=== PATIENT | female | born 1970 ===

== ENCOUNTER 2021-12-26 15:56 | Inpatient (IN) | payer OTHER, SELFPAY ==
[2021-12-26 21:40] VITALS: BP 116/76; PULSE 97; TEMP 36.6; O2SAT 99
[2021-12-27 00:10] VITALS: BMI 23.1
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
[2021-12-27 06:00] VITALS: BP 97/63; PULSE 118; RESP 20; TEMP 36.4; O2SAT 97
--- NOTE | 2021-12-27 10:05 | P.CONHOSP_ITS ---
History of Present Illness Data of Consult Service Date: 12/27/21 Primary Care Provider: Unknown Physician HPI Reason for consult: Routine Medical H&P This is a 51 yo F who is admitted to the inpatient psych unit. Medical consult is requested for routine medical H&P. Patient is seen and examined in her room. catering truck driver is bedside. Please note, the history & physical is very limited due to the patient's current psychiatric symptoms. PMH/PSH/FH/Social History Does not answer -- too preoccupied with being admitted to inpatient psych. Keeps asking about her . Review of Systems Review of Systems: unreliable due to patients current psychiatric decompensation PMFSH Social History Household Members: Family Housing: House Do you presently have visiting nurse or other home services: No Patient Tobacco Use Status: Never used Tobacco e-Cigarette/Vaping Use: Never Used Second Hand Smoke Exposure: No Use of substances other than those prescribed or required for medical reasons: No Currently Displaying Signs/Symptoms of Drug Intoxication Withdrawal: No Any prior treatment program specific to substance use: No Have you been hit, kicked, punched, or otherwise hurt by someone within the past year? If so, by whom?: No Do you feel safe in your current relationship?: Yes Is there a partner from a previous relationship who is making you feel unsafe now?: No Are you made to feel afraid or neglected: No Spiritual Healthcare Practices: Pt unsure Sabianist Healthcare Practices: Pt unsure Cultural Healthcare Practices: Pt unsure Advance Directives: No Advance Directives Information Provided: No Advance Directives on File: No Do you have thoughts of harming others: None Do you have a plan to hurt others: No Plan Recently lost weight without trying: No How much weight loss: 14-23 pounds Eating poorly because of decreased appetite: Yes Nutrition screen score: 3 Nutrition Risks: No Nutritional Risk and Anorexia Patient : No : No Poor oral hygiene: No Meds Allergies Allergy/AdvReac Type Severity Reaction Status Date / Time No Known Allergies Allergy Verified 12/26/21 15:32 Active Medications: Current Medications Acetaminophen (Acetaminophen 325 Mg Tablet) 650 mg PO Q6H PRN PRN Reason: Headache/Pain Mild Scale (1-3) Al Hydroxide/Mg Hydroxide (Magnesium Hydrox/Alum Hydrox 30 Ml Oral.Susp) 30 ml PO Q6H PRN PRN Reason: Heartburn/Nausea Hydroxyzine HCl (Hydroxyzine Hcl 25 Mg Tablet) 25 mg PO BEDTIME PRN PRN Reason: Anxiety Magnesium Hydroxide (Milk Of Magnesia 30 Ml Oral.Susp) 30 ml PO DAILY PRN PRN Reason: Constipation Trazodone HCl (Trazodone Hcl 50 Mg Tablet) 50 mg PO BEDTIME PRN PRN Reason: Insomnia Physical Exam Vital Signs and Narrative: Vital Signs: Last Vital Signs Temp 97.6 F 12/27/21 06:00 Pulse 118 H 12/27/21 06:00 Resp 20 12/27/21 06:00 BP 97/63 12/27/21 06:00 Pulse Ox 97 12/27/21 06:00 BMI result Body Mass Index 23.1 Const: Other: Exam is limited Pt is seen ambulating in the hallway, does not have any obvious gait issues EOMI are in tact Does let me complete heart and lung exam -- S1S2+; RRR -- slight tachy around 100-110 range; lungs clear Neuro - limited exam but CN 2-12 appear grossly in tact; moving all 4 limbs, speech appears normal Assessment and Plan (1) Routine medical exam: Status: Acute Plan This is a 51 yo F who is admitted to the inpatient psych unit. Medical consult is requested for routine medical H&P. PMH unclear, as patient does not answer questions. Check basic lab work if not already done so. Please reconsult PRN. Will sign off at this time.
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
[2021-12-27 18:56] VITALS: BP 95/64; PULSE 94; RESP 18; TEMP 36.2; O2SAT 98
[2021-12-27] MEDS: risperiDONE 1 MG TABLET PO (21:33)
[2021-12-27] MEDS: Mirtazapine 15 MG TABLET PO (21:33)
[2021-12-28 06:00] VITALS: BP 101/67; PULSE 98; RESP 18; TEMP 36.4; O2SAT 98
[2021-12-28 07:50] VITALS: BP 82/56; RESP 14
[2021-12-28 08:14] LABS: Glucose, Whole Blood 64 mg/dL (60-115)
[2021-12-28 08:34] LABS: Estimated Average Glucose 97 mg/dL
[2021-12-28 08:39] LABS: Alanine Aminotransferase 14 U/L (0-31); Albumin Level 4.2 g/dL (3.5-5.0); Alkaline Phosphatase 73 U/L (39-117); Anion Gap 15 (12-20); Aspartate Amino Transferase 16 U/L (5-31); Bilirubin Total 0.9 mg/dL (0.0-1.0); Blood Urea Nitrogen 24 mg/dL (9-16); Calcium 10.4 mg/dL (8.4-10.2); Carbon Dioxide 26 mmol/L (22-29); Chloride 105 mmol/L (96-108); Cholesterol 224 mg/dL; Creatinine Clr Calc Pharmacy 53.8; Estimated Glomerular Filt Rate 58; Glucose Random 76 mg/dL (60-115); HDL Cholesterol 64 mg/dL; LDL Cholesterol Calculated 141 mg/dl; Potassium 4.6 mmol/L (3.3-5.1); Sodium 141 mmol/L (135-145); Total Protein 7.2 g/dL (6.5-8.0); Triglycerides 98 mg/dL
[2021-12-28 09:05] LABS: Vitamin D 25-OH Total 14.8 ng/mL (>30)
--- NOTE | 2021-12-28 10:00 | ECG_ITS ---
Test Reason : CKQT Blood Pressure : / mmHG Vent. Rate : 084 BPM Atrial Rate : 084 BPM P-R Int : 126 ms QRS Dur : 078 ms QT Int : 382 ms P-R-T Axes : 078 068 058 degrees QTc Int : 451 ms Sinus rhythm with Premature supraventricular complexes Otherwise normal ECG No previous ECGs available Referred By: Samara Barrera Electronically Signed By:VICK LUTHER MD
[2021-12-28 11:20] VITALS: BP 87/52; PULSE 97; RESP 14; O2SAT 100
[2021-12-28 12:32] LABS: Folate 9.7 ng/mL (> or = 4.0); Vitamin B12 461 pg/mL (200-900)
--- NOTE | 2021-12-28 14:50 | MHC.CLN ---
RE: CONSULT HT 63 WT 59.1KG BMI 23.1 IBW 115#+/-10% PT IS 113% IBW INDICATES OVER WEIGHT FOR HT ESTIMATED NUTRITION NEEDS: 1773KCALS, 59G PROTEIN, 1800ML H20 LABS 12/28/21 NOTED BUN 24, ALBUMIN 4.2 WNL MEDS: REMERON, RISPERDAL DIET RX: REGULAR-APPROPRIATE PT REPORTS 30# WT LOSS SINCE MARCH 2021 PT TRIGGERS FOR 19% SIGNIFICANT WT LOSS X 9 MONTHS PT REPORTED POOR SLEEP AND POOR PO INTAKE PT HAS HX ANOREXIA DURING TEEN YEARS INCREASES NUTRITION RISK MONITOR PO INTAKE CLOSELY IF PO REMAINS POOR; RECOMMEND ADDING ENSURE BID TO PROVIDE 700KCALS, 40G PROTEIN WEEKLY WEIGHTS IF NEEDED
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
[2021-12-28 17:37] VITALS: BP 100/64; PULSE 82; RESP 18; TEMP 37.2; O2SAT 99
[2021-12-28] MEDS: Mirtazapine 15 MG TABLET PO (20:09)
[2021-12-28] MEDS: risperiDONE 1 MG TABLET PO (20:09)
[2021-12-29 06:00] VITALS: BP 120/61; PULSE 100; RESP 16; TEMP 35.8; O2SAT 97
[2021-12-29] MEDS: Multivitamin TABLET 1 TAB PO (08:55)
[2021-12-29] MEDS: Mirtazapine 15 MG TABLET PO (22:22)
[2021-12-29] MEDS: risperiDONE 1 MG TABLET PO (22:22)
--- NOTE | 2021-12-29 23:33 | P.PNPSI_ITS ---
Subjective Subjective Date of Service: 12/29/21 Reason For Visit: Psychotic d/o Interim History: pt disorganized, difficult to engage as she is perseverative on various topics. She keeps saying over and over that she thinks she missed something, missed some group, that there was something she was supposed to be attending...pt could not be redirected off this topic and interview could go no further. Mental Status Exam Mental Status Exam Narrative: Patient Appearance:?Appropriate Patient Orientation:?Person, Place, Time and Situation Level of Consciousness:?Alert Patient Behavior:?disorganized, Talkative, minimal Eye Contact Mood Description:?anxious Affect Description:?constricted Patient Cognition Impaired:?Yes Ability to Follow Directions:?Fair Speech Pattern:?Spontaneous Speech Memory Description:?Remote Impaired and Episodic Impaired Hallucinations:?None (denies) Delusions:?Paranoid Ideation Perceptual Disturbances:?Depersonalization and Derealization Thought Process:?Rumination Thought Content:?positive for [place], ruminating on worried thought; no SI/HI Depressive Symptoms:?Increased Anxiety Judgement/insight:?Poor Diagnostics Vital Signs (24Hr): Vital Signs - 24 hr 12/29/21 06:00 Temperature 96.4 F L Pulse Rate 100 Respiratory Rate 16 Blood Pressure 120/61 Pulse Oximetry 97 BMI result Body Mass Index 23.1 Labs Results: 12/28/21 08:04 Labs: Laboratory Results - last 48 hr 12/28/21 12/28/21 12/28/21 08:04 08:04 08:04 Sodium 141 Potassium 4.6 Chloride 105 Carbon Dioxide 26 Anion Gap 15 BUN 24 H Creatinine 1.00 Estim Creat Clear Calc 53.8 Estimated GFR 58 POC Glucose Random Glucose 76 Estimat Average Glucose 97 Hemoglobin A1c % 5.0 Calcium 10.4 H Total Bilirubin 0.9 AST 16 ALT 14 Alkaline Phosphatase 73 Total Protein 7.2 Albumin 4.2 Triglycerides 98 Cholesterol 224 LDL Cholesterol, Calc 141 HDL Cholesterol 64 Vitamin B12 461 25-OH Vitamin D Total 14.8 Folate 9.7 TSH 0.70 12/28/21 08:10 Sodium Potassium Chloride Carbon Dioxide Anion Gap BUN Creatinine Estim Creat Clear Calc Estimated GFR POC Glucose 64 Random Glucose Estimat Average Glucose Hemoglobin A1c % Calcium Total Bilirubin AST ALT Alkaline Phosphatase Total Protein Albumin Triglycerides Cholesterol LDL Cholesterol, Calc HDL Cholesterol Vitamin B12 25-OH Vitamin D Total Folate TSH Medications Medications Current Medications Acetaminophen (Acetaminophen 325 Mg Tablet) 650 mg PO Q6H PRN PRN Reason: Headache/Pain Mild Scale (1-3) Al Hydroxide/Mg Hydroxide (Magnesium Hydrox/Alum Hydrox 30 Ml Oral.Susp) 30 ml PO Q6H PRN PRN Reason: Heartburn/Nausea Hydroxyzine HCl (Hydroxyzine Hcl 25 Mg Tablet) 25 mg PO BEDTIME PRN PRN Reason: Anxiety Magnesium Hydroxide (Milk Of Magnesia 30 Ml Oral.Susp) 30 ml PO DAILY PRN PRN Reason: Constipation Mirtazapine (Mirtazapine 15 Mg Tablet) 15 mg PO BEDTIME [facility] [place] Last Admin: 12/29/21 22:22 Dose: 15 mg Documented by: Multivitamins/Vitamin C (Multivitamin Tablet) 1 tab PO DAILY [facility] Last Admin: 12/29/21 08:55 Dose: 1 tab Documented by: Risperidone (Risperidone 1 Mg Tablet) 1 mg PO BEDTIME [facility] Last Admin: 12/29/21 22:22 Dose: 1 mg Documented by: Trazodone HCl (Trazodone Hcl 50 Mg Tablet) 50 mg PO BEDTIME PRN PRN Reason: Insomnia Allergies Allergies Allergy/AdvReac Type Severity Reaction Status Date / Time No Known Allergies Allergy Verified 12/26/21 15:32 Assessment & Plan Assessment & Plan (1) Major depression with psychotic features: Status: Acute Code(s): F32.3 - Major depressive disorder, single episode, severe with psychotic features Plan 51 yo female presents with symptoms of paranoia, psychosis without history of illness. ADL's have declined and pt in the ER experiencing delusions of persecution, derealization and depersonalization. Today, she asks how to leave, have very poor spatial boundaries-staring into tw eyes and violating personal space often during our meeting. Medical clearance from sending facility is limited. Will begin with this eval. Psychosocially, pt has lost both parents in 2017 and 2018 and per family has not grieved adequately. Youngest son has moved from the family home in summer 2020 and reportedly has a history of depression with SI. 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 Pt not eating or sleeping well, anxious and wandering the unit asking to leave. Plan: Remeron 15 mg HS- target sx sleep, appetite Risperdal 1 mg HS-target sx to clarify thought process, decrease paranoia CMP, TSH, B12, Folate, Vit D, A1C, Lipids EKG MRI Brain-new onset psychosis in the absence of history. EEG MVI i tablet daily 12/28/21: Continue medical work up and current regime Pt appears improved today. Ongoing collateral contact-it appears history of symptoms is longer than initially known. ? R/O PTSD 12/29 disorganized speech and behavior, perseverating on non-sensical things; will leave current med regimen as is for now I spent minutes with the patient and/or on the patient floor today, greater than?50% of which was spent counseling/coordinating care. Patient educated on: medication risk/benefits Informed Consent: does not understand Reason for contiued inpatient stay Substantial Risk for: inability to function
--- NOTE | 2021-12-30 00:13 | PC.NURSE ---
Patient's expressed a lot of concern that his might be losing too much weight and asked that her weight be monitored closely.
[2021-12-30] MEDS: Multivitamin TABLET 1 TAB PO (08:38)
[2021-12-30 09:00] VITALS: BP 122/74; PULSE 91; RESP 18; TEMP 36.6; O2SAT 98
--- NOTE | 2021-12-30 17:26 | HO.PSYCHPN ---
Subjective Subjective Date of Service: 12/30/21 Reason For Visit: Psychotic d/o Interim History: pt remains disorganized, crying in hallway, seems confused. Tells loan underwriter that there is a sweater on chair in day room and she's worried she'll be accused if it goes missing. Pt perseverates on this worry and cannot be redirected to another topic. Sole Conditioner discusses medications and pt agrees to increase risperdal. Mental Status Exam Mental Status Exam Narrative: Patient Appearance:?disheveled, same shirt, malodorous Patient Orientation:?Person, Place, Level of Consciousness:?Alert Patient Behavior:?disorganized, Talkative, minimal Eye Contact Mood Description:?anxious Affect Description:?constricted Patient Cognition Impaired:?Yes Ability to Follow Directions:?Fair Speech Pattern:?Spontaneous Speech Memory Description:?Remote Impaired and Episodic Impaired Hallucinations:?None (denies) Delusions:?Paranoid Ideation Perceptual Disturbances:?Depersonalization and Derealization Thought Process:?Rumination Thought Content:?positive for [place], ruminating on worried thought; no SI/HI Depressive Symptoms:?Increased Anxiety Judgement/insight:?Poor Diagnostics Vital Signs (24Hr): Vital Signs - 24 hr 12/30/21 09:00 Temperature 98 F Pulse Rate 91 Respiratory Rate 18 Blood Pressure 122/74 Pulse Oximetry 98 BMI result Body Mass Index 23.1 Labs Results: 12/28/21 08:04 Medications Medications Current Medications Acetaminophen (Acetaminophen 325 Mg Tablet) 650 mg PO Q6H PRN PRN Reason: Headache/Pain Mild Scale (1-3) Al Hydroxide/Mg Hydroxide (Magnesium Hydrox/Alum Hydrox 30 Ml Oral.Susp) 30 ml PO Q6H PRN PRN Reason: Heartburn/Nausea Hydroxyzine HCl (Hydroxyzine Hcl 25 Mg Tablet) 25 mg PO BEDTIME PRN PRN Reason: Anxiety Magnesium Hydroxide (Milk Of Magnesia 30 Ml Oral.Susp) 30 ml PO DAILY PRN PRN Reason: Constipation Mirtazapine (Mirtazapine 15 Mg Tablet) 15 mg PO BEDTIME [facility] Last Admin: 12/29/21 22:22 Dose: 15 mg Documented by: Multivitamins/Vitamin C (Multivitamin Tablet) 1 tab PO DAILY [facility] Last Admin: 12/30/21 08:38 Dose: 1 tab Documented by: Risperidone (Risperidone 2 Mg Tablet) 2 mg PO BEDTIME [facility] Trazodone HCl (Trazodone Hcl 50 Mg Tablet) 50 mg PO BEDTIME PRN PRN Reason: Insomnia Allergies Allergies Allergy/AdvReac Type Severity Reaction Status Date / Time No Known Allergies Allergy Verified 12/26/21 15:32 Assessment & Plan Assessment & Plan (1) Major depression with psychotic features: Status: Acute Code(s): F32.3 - Major depressive disorder, single episode, severe with psychotic features Plan 51 yo female presents with symptoms of paranoia, psychosis without history of illness. ADL's have declined and pt in the ER experiencing delusions of persecution, derealization and depersonalization. Today, she asks how to leave, have very poor spatial boundaries-staring into tw eyes and violating personal space often during our meeting. Medical clearance from sending facility is limited. Will begin with this eval. Psychosocially, pt has lost both parents in 2016 and 2017 and per family has not grieved adequately. Youngest son has moved from the family home in summer 2020 and reportedly has a history of depression with SI. 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 Pt not eating or sleeping well, anxious and wandering the unit asking to leave. Plan: Remeron 15 mg HS- target sx sleep, appetite Risperdal 1 mg HS-target sx to clarify thought process, decrease paranoia CMP, TSH, B12, Folate, Vit D, A1C, Lipids EKG MRI Brain-new onset psychosis in the absence of history. EEG MVI i tablet daily 12/28/21: Continue medical work up and current regime Pt appears improved today. Ongoing collateral contact-it appears history of symptoms is longer than initially known. ? R/O PTSD 12/30 remains disorganized, perseverating on non-sensical worries; -increase risperdal to 2mg qhs I spent minutes with the patient and/or on the patient floor today, greater than?50% of which was spent counseling/coordinating care. Patient educated on: medication risk/benefits Informed Consent: understands Reason for contiued inpatient stay Substantial Risk for: inability to function
[2021-12-30 18:00] VITALS: BP 112/76; PULSE 100; TEMP 36.4
[2021-12-30] MEDS: risperiDONE 2 MG TABLET PO (20:50)
[2021-12-30] MEDS: Mirtazapine 15 MG TABLET PO (20:50)
[2021-12-31 06:00] VITALS: BP 118/72; PULSE 93; RESP 18; TEMP 36.6; O2SAT 99
[2021-12-31] MEDS: Multivitamin TABLET 1 TAB PO (08:46)
--- NOTE | 2021-12-31 09:00 | EEG_ITS ---
This is a 16-channel EEG with an EKG lead. The patient is reported awake during the tracing. Background EEG rhythm is about 16 hertz, 5 to 30 microvolt posteriorly, lower amplitude fast anteriorly. Photic stimulation does not produce any significant abnormality. Hyperventilation is not performed. Cardiac lead does not reveal any significant abnormality. No definite sharp wave spikes or paroxysmal tendency noted. The patient transitioned into drowsiness with no significant abnormality. IMPRESSION: Unremarkable EEG. MD RUEL Ordoñez/KHURRAM / [id number]
--- NOTE | 2021-12-31 16:23 | P.PNPSI_ITS ---
Subjective Subjective Date of Service: 12/31/21 Reason For Visit: Psychotic d/o Subjective Notes: Conditional Voluntary Healthcare Proxy: No Guardianship: No Medical Problems Affecting Mental Status: No Interim History: Joy signed a Section X today. She reports she does not feel prepared to go home, and, in fact, fears that someone will come to the unit and kidnap her and she will be taken away from her family. Attempted reassurance, discussed safety. Pt reports she feels safe on the unit, likes her room-mate a lot and enjoys her peers and the staff. Today, she was found using the bathroom while her room-mate was in the bathroom-she did not find this problematic, citing that she has raised two children and when young, they were always in the bathroom with her-as a result she thought nothing of this instance this a.m. Her room-mate contributes to this discussion stating she fully understands as she is one of five children. Both smiled and laughed briefly. Discussed medication. Joy reports she is finding it helpful and wants to increase. Discussed adding colace to prevent constipation and Eucerin cream for dry skin. Presents as pressured at times, anxious-talks about fearing she would be taken in her childhood. Agrees to treatment plan. Medication Compliance: Yes Side effects from medications: No Attending Groups: Intermittent Review of Systems Acute medical concerns: No Medical Review of Systems: unchanged Review of Systems Reports behavioral changes and Reports confusion Psychiatric: Reports anxiety, Reports behavioral changes, Reports confusion, Reports depression, Reports difficulty concentrating, Reports mood swings and Reports paranoia Mental Status Exam Mental Status Exam Patient Appearance: Appropriate Patient Orientation: Person, Place, Time and Situation Level of Consciousness: Alert Patient Behavior: Guarded, Talkative, Suspicious and Good Eye Contact Mood Description: Depressed, Fearful, Anxious and Apprehensive Affect Description: Depressed, Fearful and Anxious Patient Cognition Impaired: Yes Ability to Follow Directions: Good Speech Pattern: Perseverating, Spontaneous Speech and Soft-Spoken Memory Description: Episodic Impaired Hallucinations: None Delusions: Paranoid Ideation and Present Perceptual Disturbances: Depersonalization and Derealization Thought Process: Distracted, Rumination and Confusion Thought Content: positive for Perseveration, positive for Thought Blocking and positive for Tangential Depressive Symptoms: Increased Anxiety, Loss of Int. in Activity, Feelings of Worthlessness, Isolating-Friends/Family, Feelings of Guilt, Unhappiness, Increased Fatigue, Low Self Esteem, Loss of Energy and Difficulty Concentrating Abnormal Motor Activity Signs and Symptoms: Restlessness Judgement: Poor Diagnostics Vital Signs (24Hr): Vital Signs - 24 hr 12/30/21 18:00 12/31/21 06:00 Temperature 97.6 F 97.8 F Pulse Rate 100 93 Respiratory Rate 18 Blood Pressure 112/76 118/72 Pulse Oximetry 99 BMI result Body Mass Index 23.1 Labs Results: 12/28/21 08:04 Medications Medications Current Medications Acetaminophen (Acetaminophen 325 Mg Tablet) 650 mg PO Q6H PRN PRN Reason: Headache/Pain Mild Scale (1-3) Al Hydroxide/Mg Hydroxide (Magnesium Hydrox/Alum Hydrox 30 Ml Oral.Susp) 30 ml PO Q6H PRN PRN Reason: Heartburn/Nausea Docusate Sodium (Docusate Sodium 100 Mg Capsule) 100 mg PO BEDTIME [facility] Hydroxyzine HCl (Hydroxyzine Hcl 25 Mg Tablet) 25 mg PO BEDTIME PRN PRN Reason: Anxiety Magnesium Hydroxide (Milk Of Magnesia 30 Ml Oral.Susp) 30 ml PO DAILY PRN PRN Reason: Constipation Mirtazapine (Mirtazapine 15 Mg Tablet) 15 mg PO BEDTIME [facility] Last Admin: 12/30/21 20:50 Dose: 15 mg Documented by: Multi-Ingred Cream/Lotion/Oil/Oint (Mineral Oil/Petrolatum,White 106 Gm Tube) 1 appl TOPICAL BID [facility]; Protocol Multivitamins/Vitamin C (Multivitamin Tablet) 1 tab PO DAILY [facility] Last Admin: 12/31/21 08:46 Dose: 1 tab Documented by: Oxcarbazepine (Oxcarbazepine 300 Mg Tablet) 300 mg PO BID [facility] Risperidone (Risperidone 2 Mg Tablet) 2 mg PO BEDTIME [facility] Last Admin: 12/30/21 20:50 Dose: 2 mg Documented by: Risperidone (Risperidone 1 Mg Tablet) 1 mg PO DAILY [facility] Trazodone HCl (Trazodone Hcl 50 Mg Tablet) 50 mg PO BEDTIME PRN PRN Reason: Insomnia Allergies Allergies Allergy/AdvReac Type Severity Reaction Status Date / Time No Known Allergies Allergy Verified 12/26/21 15:32 Assessment & Plan Assessment & Plan (1) Major depression with psychotic features: Status: Acute Code(s): F32.3 - Major depressive disorder, single episode, severe with psychotic feat ures Plan 51 yo female presents with symptoms of paranoia, psychosis without history of illness. ADL's have declined and pt in the ER experiencing delusions of pe rsecution, derealization and depersonalization. Today, she asks how to leave, have very poor spatial boundaries-staring into tw eyes and violating personal space often during our meeting. Medical clearance from sending facility is limited. Will begin with this eval. Psychosocially, pt has lost both parents in 2016 and 2017 and per family has not grieved adequately. Youngest son has moved from the family home in summer 2020 and reportedly has a history of depression with SI. 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 Pt not eating or sleeping well, anxious and wandering the unit asking to leave. Plan: Remeron 15 mg HS- target sx sleep, appetite Risperdal 1 mg HS-target sx to clarify thought process, decrease paranoia CMP, TSH, B12, Folate, Vit D, A1C, Lipids EKG MRI Brain-new onset psychosis in the absence of history. EEG MVI i tablet daily 12/28/21: Continue medical work up and current regime Pt appears improved today. Ongoing collateral contact-it appears history of symptoms is longer than initially known. ? R/O PTSD 12/30 remains disorganized, perseverating on non-sensical worries; -increase risperdal to 2mg qhs 12/31/21 Pt has signed a Section X Add Risperdal 1mg a.m. Begin Trileptal 300 mg bid I spent minutes with the patient and/or on the patient floor today, greater than?50% of which was spent counseling/coordinating care. Patient educated on: medication risk/benefits and therapeutic strategies Informed Consent: further education needed Reason for contiued inpatient stay Substantial Risk for: inability to function and rapid decompensation
[2021-12-31 21:15] VITALS: BP 116/69; PULSE 101; TEMP 36.9
[2021-12-31] MEDS: OXcarbazepine 300 MG TABLET PO (21:15)
[2021-12-31] MEDS: Docusate Sodium 100 MG CAPSULE PO (21:16)
[2021-12-31] MEDS: risperiDONE 2 MG TABLET PO (21:16)
[2021-12-31] MEDS: Mirtazapine 15 MG TABLET PO (21:16)
[2022-01-01 06:00] VITALS: BP 124/74; PULSE 97; RESP 18; TEMP 36.7; O2SAT 99
[2022-01-01] MEDS: OXcarbazepine 300 MG TABLET PO ×2 (09:22→21:39)
[2022-01-01] MEDS: risperiDONE 1 MG TABLET PO (09:22)
[2022-01-01] MEDS: Multivitamin TABLET 1 TAB PO (09:22)
--- NOTE | 2022-01-01 16:07 | P.PNPSI_ITS ---
Subjective Subjective Date of Service: 01/01/22 Reason For Visit: Psychotic d/o Subjective Notes: Conditional Voluntary Healthcare Proxy: No Guardianship: No Medical Problems Affecting Mental Status: No Interim History: Joy discussed worry about being taken from the unit, kidnapped, and never being able to go home. Attempted to reassure her. Resting for most of the day, however, not sleeping during the day-interactive when approached. Tolerating medications, engaged with others, states she wants to try groups. Medication Compliance: Yes Side effects from medications: No Attending Groups: No Review of Systems Acute medical concerns: No Medical Review of Systems: unchanged Review of Systems Reports behavioral changes and Reports confusion Psychiatric: Reports anxiety, Reports behavioral changes, Reports confusion, Reports depression, Reports difficulty concentrating, Reports mood swings and Reports paranoia Mental Status Exam Mental Status Exam Patient Appearance: Appropriate Patient Orientation: Person, Place, Time and Situation Level of Consciousness: Alert Patient Behavior: Guarded, Talkative, Suspicious and Good Eye Contact Mood Description: Depressed, Fearful, Anxious and Apprehensive Affect Description: Depressed, Fearful and Anxious Patient Cognition Impaired: Yes Ability to Follow Directions: Good Speech Pattern: Perseverating, Spontaneous Speech and Soft-Spoken Memory Description: Episodic Impaired Hallucinations: None Delusions: Paranoid Ideation and Present Perceptual Disturbances: Depersonalization and Derealization Thought Process: Distracted, Rumination and Confusion Thought Content: positive for Per[place], positive for Thought Blocking and positive for Tangential Depressive Symptoms: Increased Anxiety, Loss of Int. in Activity, Feelings of Worthlessness, Isolating-Friends/Family, Feelings of Guilt, Unhappiness, Increased Fatigue, Low Self Esteem, Loss of Energy and Difficulty Concentrating Abnormal Motor Activity Signs and Symptoms: Restlessness Judgement: Poor Diagnostics Vital Signs (24Hr): Vital Signs - 24 hr 12/31/21 21:15 01/01/22 06:00 Temperature 98.4 F 98.1 F Pulse Rate 101 H 97 Respiratory Rate 18 Blood Pressure 116/69 124/74 Pulse Oximetry 99 BMI result Body Mass Index 23.1 Labs Results: 12/28/21 08:04 Medications Medications Current Medications Acetaminophen (Acetaminophen 325 Mg Tablet) 650 mg PO Q6H PRN PRN Reason: Headache/Pain Mild Scale (1-3) Al Hydroxide/Mg Hydroxide (Magnesium Hydrox/Alum Hydrox 30 Ml Oral.Susp) 30 ml PO Q6H PRN PRN Reason: Heartburn/Nausea Docusate Sodium (Docusate Sodium 100 Mg Capsule) 100 mg PO BEDTIME [facility] Last Admin: 12/31/21 21:16 Dose: 100 mg Documented by: Hydroxyzine HCl (Hydroxyzine Hcl 25 Mg Tablet) 25 mg PO BEDTIME PRN PRN Reason: Anxiety Magnesium Hydroxide (Milk Of Magnesia 30 Ml Oral.Susp) 30 ml PO DAILY PRN PRN Reason: Constipation Mirtazapine (Mirtazapine 15 Mg Tablet) 15 mg PO BEDTIME [facility] Last Admin: 12/31/21 21:16 Dose: 15 mg Documented by: Multi-Ingred Cream/Lotion/Oil/Oint (Mineral Oil/Petrolatum,White 106 Gm Tube) 1 appl TOPICAL BID [facility]; Protocol Last Admin: 01/01/22 10:58 Dose: Not Given Documented by: Multivitamins/Vitamin C (Multivitamin Tablet) 1 tab PO DAILY [facility] Last Admin: 01/01/22 09:22 Dose: 1 tab Documented by: Oxcarbazepine (Oxcarbazepine 300 Mg Tablet) 300 mg PO BID [facility] Last Admin: 01/01/22 09:22 Dose: 300 mg Documented by: Risperidone (Risperidone 2 Mg Tablet) 2 mg PO BEDTIME [facility] Last Admin: 12/31/21 21:16 Dose: 2 mg Documented by: Risperidone (Risperidone 1 Mg Tablet) 1 mg PO DAILY [facility] Last Admin: 01/01/22 09:22 Dose: 1 mg Documented by: Trazodone HCl (Trazodone Hcl 50 Mg Tablet) 50 mg PO BEDTIME PRN PRN Reason: Insomnia Allergies Allergies Allergy/AdvReac Type Severity Reaction Status Date / Time No Known Allergies Allergy Verified 12/26/21 15:32 Assessment & Plan Assessment & Plan (1) Major depression with psychotic features: Status: Acute Code(s): F32.3 - Major depressive disorder, single episode, severe with psychotic features Plan 51 yo female presents with symptoms of paranoia, psychosis without history of illness. ADL's have declined and pt in the ER experiencing delusions of persecution, derealization and depersonalization. Today, she asks how to leave, have very poor spatial boundaries-staring into tw eyes and violating personal space often during our meeting. Medical clearance from sending facility is limited. Will begin with this eval. Psychosocially, pt has lost both parents in 2016 and 2017 and per family has not grieved adequately. Youngest son has moved from the family home in summer 2020 and reportedly has a history of depression with SI. 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 Pt not eating or sleeping well, anxious and wandering the unit asking to leave. Plan: Remeron 15 mg HS- target sx sleep, appetite Risperdal 1 mg HS-target sx to clarify thought process, decrease paranoia CMP, TSH, B12, Folate, Vit D, A1C, Lipids EKG MRI Brain-new onset psychosis in the absence of history. EEG MVI i tablet daily 12/28/21: Continue medical work up and current regime Pt appears improved today. Ongoing collateral contact-it appears history of symptoms is longer than initially known. ? R/O PTSD 12/30 remains disorganized, perseverating on non-sensical worries; -increase risperdal to 2mg qhs 12/31/21 Pt has signed a Section X Add Risperdal 1mg a.m. Begin Trileptal 300 mg bid 01/01/22 Continue current regime I spent minutes with the patient and/or on the patient floor today, greater than?50% of which was spent counseling/coordinating care. Patient educated on: medication risk/benefits and therapeutic strategies Informed Consent: further education needed Reason for contiued inpatient stay Substantial Risk for: harm to self, inability to function and rapid decompensation
[2022-01-01] MEDS: risperiDONE 2 MG TABLET PO (21:39)
[2022-01-01] MEDS: Mirtazapine 15 MG TABLET PO (21:39)
[2022-01-01] MEDS: Docusate Sodium 100 MG CAPSULE PO (21:39)
[2022-01-01 21:45] VITALS: BP 105/65; PULSE 86; TEMP 36.1
[2022-01-02 06:00] VITALS: BP 112/54; PULSE 85; RESP 18; TEMP 36.6; O2SAT 97
[2022-01-02] MEDS: Multivitamin TABLET 1 TAB PO (09:40)
[2022-01-02] MEDS: risperiDONE 1 MG TABLET PO (09:40)
[2022-01-02] MEDS: OXcarbazepine 300 MG TABLET PO ×2 (09:40→20:28)
--- NOTE | 2022-01-02 16:59 | P.PNPSI_ITS ---
Subjective Subjective Date of Service: 01/02/22 Reason For Visit: Psychotic d/o Subjective Notes: Conditional Voluntary Healthcare Proxy: No Guardianship: No Medical Problems Affecting Mental Status: No Interim History: Perseverative, fearful, upset that her hospital bracelet was changed, believes this to be a sign that she will be taken from the unit and never be allowed to return home. Care discussed with pt's , Barak [phone] who reports at baseline pt is excited . Her highs are high and her lows are low. His observations since her admission 12/28-subdued with paranoia-calm; 12/29-12/30-anxious; 12/31 very close to baseline this was the girl I . 01/01 back to where she was when I brought her in. Medication Compliance: Yes Side effects from medications: No Attending Groups: Intermittent Review of Systems Acute medical concerns: No Medical Review of Systems: unchanged Review of Systems Reports behavioral changes Psychiatric: Reports anxiety, Reports behavioral changes, Reports change in appetite (states she is eating meals), Reports depression, Reports difficulty concentrating, Reports irritability, Reports anhedonia, Reports mood swings and Reports paranoia Mental Status Exam Mental Status Exam Patient Appearance: Disheveled Patient Orientation: Person, Place, Time and Situation Level of Consciousness: Alert Patient Behavior: Guarded, Talkative, Cooperative, Suspicious, Anxious, Fearful, Fatigued, Distractible, Confused and Good Eye Contact Mood Description: Depressed and Anxious Affect Description: Flat Patient Cognition Impaired: No Ability to Follow Directions: Good Speech Pattern: Spontaneous Speech Memory Description: Episodic Impaired Hallucinations: None Delusions: Paranoid Ideation Thought Process: Illogical, Distracted and Rumination Thought Content: positive for [place], positive for Circumstantial, positive for Perseveration, positive for Preoccupation and positive for Suicidal Ideation (denies) Depressive Symptoms: Increased Anxiety, Diff. Making Decisions and Unhappiness Judgement: Poor Diagnostics Vital Signs (24Hr): Vital Signs - 24 hr 01/01/22 21:45 01/02/22 06:00 Temperature 97.0 F 97.9 F Pulse Rate 86 85 Respiratory Rate 18 Blood Pressure 105/65 112/54 L Pulse Oximetry 97 BMI result Body Mass Index 23.1 Labs Results: 12/28/21 08:04 Medications Medications Current Medications Acetaminophen (Acetaminophen 325 Mg Tablet) 650 mg PO Q6H PRN PRN Reason: Headache/Pain Mild Scale (1-3) Al Hydroxide/Mg Hydroxide (Magnesium Hydrox/Alum Hydrox 30 Ml Oral.Susp) 30 ml PO Q6H PRN PRN Reason: Heartburn/Nausea Docusate Sodium (Docusate Sodium 100 Mg Capsule) 100 mg PO BEDTIME [facility] Last Admin: 01/01/22 21:39 Dose: 100 mg Documented by: Hydroxyzine HCl (Hydroxyzine Hcl 25 Mg Tablet) 25 mg PO BEDTIME PRN PRN Reason: Anxiety Magnesium Hydroxide (Milk Of Magnesia 30 Ml Oral.Susp) 30 ml PO DAILY PRN PRN Reason: Constipation Mirtazapine (Mirtazapine 15 Mg Tablet) 15 mg PO BEDTIME [facility] Last Admin: 01/01/22 21:39 Dose: 15 mg Documented by: Multi-Ingred Cream/Lotion/Oil/Oint (Mineral Oil/Petrolatum,White 106 Gm Tube) 1 appl TOPICAL BID [facility]; Protocol Last Admin: 01/02/22 09:42 Dose: Not Given Documented by: Multivitamins/Vitamin C (Multivitamin Tablet) 1 tab PO DAILY [facility] Last Admin: 01/02/22 09:40 Dose: 1 tab Documented by: Oxcarbazepine (Oxcarbazepine 300 Mg Tablet) 300 mg PO BID [facility] Last Admin: 01/02/22 09:40 Dose: 300 mg Documented by: Risperidone (Risperidone 2 Mg Tablet) 2 mg PO BEDTIME [facility] Last Admin: 01/01/22 21:39 Dose: 2 mg Documented by: Trazodone HCl (Trazodone Hcl 50 Mg Tablet) 50 mg PO BEDTIME PRN PRN Reason: Insomnia Allergies Allergies Allergy/AdvReac Type Severity Reaction Status Date / Time No Known Allergies Allergy Verified 12/26/21 15:32 Assessment & Plan Assessment & Plan (1) Major depression with psychotic features: Status: Acute Code(s): F32.3 - Major depressive disorder, single episode, severe with psychotic features Plan 51 yo female presents with symptoms of paranoia, psychosis without history of illness. ADL's have declined and pt in the ER experiencing delusions of persecution, derealization and depersonalization. Today, she asks how to leave, have very poor spatial boundaries-staring into tw eyes and violating personal space often during our meeting. Medical clearance from sending facility is limited. Will begin with this eval. Psychosocially, pt has lost both parents in 2016 and 2017 and per family has not grieved adequately. Youngest son has moved from the family home in summer 2020 and reportedly has a history of depression with SI. 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 Pt not eating or sleeping well, anxious and wandering the unit asking to leave. Plan: Remeron 15 mg HS- target sx sleep, appetite Risperdal 1 mg HS-target sx to clarify thought process, decrease paranoia CMP, TSH, B12, Folate, Vit D, A1C, Lipids EKG MRI Brain-new onset psychosis in the absence of history. EEG MVI i tablet daily 12/28/21: Continue medical work up and current regime Pt appears improved today. Ongoing collateral contact-it appears history of symptoms is longer than initially known. ? R/O PTSD 12/30 remains disorganized, perseverating on non-sensical worries; -increase risperdal to 2mg qhs 12/31/21 Pt has signed a Section X Add Risperdal 1mg a.m. Begin Trileptal 300 mg bid 01/02/22 Decrease Risperdal to 2 mg HS I spent minutes with the patient and/or on the patient floor today, greater than?50% of which was spent counseling/coordinating care. Patient educated on: medication risk/benefits, therapeutic strategies and other Informed Consent: further education needed Reason for contiued inpatient stay Substantial Risk for: inability to function and rapid decompensation
[2022-01-02 18:00] VITALS: BP 104/60; PULSE 88; RESP 16; TEMP 36.5
[2022-01-02] MEDS: Mirtazapine 15 MG TABLET PO (20:28)
[2022-01-02] MEDS: risperiDONE 2 MG TABLET PO (20:28)
[2022-01-02] MEDS: Docusate Sodium 100 MG CAPSULE PO (20:28)
[2022-01-03 06:00] VITALS: BP 114/59; PULSE 85; RESP 16; TEMP 36.5; O2SAT 99
[2022-01-03] MEDS: Multivitamin TABLET 1 TAB PO (09:11)
[2022-01-03] MEDS: OXcarbazepine 300 MG TABLET PO ×2 (09:11→20:38)
--- NOTE | 2022-01-03 13:38 | HO.PSYCHPN ---
Subjective Subjective Date of Service: 01/03/22 Reason For Visit: Psychotic d/o Subjective Notes: Conditional Voluntary Healthcare Proxy: No Guardianship: No Medical Problems Affecting Mental Status: No Interim History: Pr attending groups today. Reports medicine to be helpful, however, strong. Discussed decreasing Mirtazapine to 7.5 mg and she agrees. Episodic periods of excitement-when talking about the [place] in [place], when talking about visit from last evening, when talking about one of her peer's pets. Care review with Barak [phone] who reports pt appears calm last evening with paranoia (being taken away). She reported to that she knew something would happen as her bracelet had changed yesterday and this was her indicator that she would be taken away. Anxiety was decreased. In comparison, on 12/28 he felt she was more alert. Discussed plan to decrease Mirtazapine to 7.5 mg and Trileptal to 300 mg HS. Barak felt pt was sad when he was leaving and worries about depressive sx for [place]. Medication Compliance: Yes Side effects from medications: No Attending Groups: Yes Review of Systems Acute medical concerns: No Medical Review of Systems: unchanged Review of Systems Reports behavioral changes Psychiatric: Reports anxiety, Reports behavioral changes, Reports change in appetite (states she is eating meals), Reports depression, Reports difficulty concentrating, Reports irritability, Reports anhedonia, Reports mood swings and Reports paranoia Mental Status Exam Mental Status Exam Patient Appearance: Disheveled Patient Orientation: Person, Place, Time and Situation Level of Consciousness: Alert Patient Behavior: Guarded, Talkative, Cooperative, Suspicious, Anxious, Fearful, Fatigued, Distractible, Confused and Good Eye Contact Mood Description: Depressed and Anxious Affect Description: Flat Patient Cognition Impaired: No Ability to Follow Directions: Good Speech Pattern: Spontaneous Speech Memory Description: Episodic Impaired Hallucinations: None Delusions: Paranoid Ideation Thought Process: Illogical, Distracted and Rumination Thought Content: positive for [place], positive for Circumstantial, positive for Perseveration, positive for Preoccupation and positive for Suicidal Ideation (denies) Depressive Symptoms: Increased Anxiety, Diff. Making Decisions and Unhappiness Judgement: Poor Diagnostics Vital Signs (24Hr): Vital Signs - 24 hr 01/02/22 18:00 01/03/22 06:00 Temperature 97.7 F 97.7 F Pulse Rate 88 85 Respiratory Rate 16 16 Blood Pressure 104/60 114/59 L Pulse Oximetry 99 BMI result Body Mass Index 23.1 Labs Results: 12/28/21 08:04 Medications Medications Current Medications Acetaminophen (Acetaminophen 325 Mg Tablet) 650 mg PO Q6H PRN PRN Reason: Headache/Pain Mild Scale (1-3) Al Hydroxide/Mg Hydroxide (Magnesium Hydrox/Alum Hydrox 30 Ml Oral.Susp) 30 ml PO Q6H PRN PRN Reason: Heartburn/Nausea Docusate Sodium (Docusate Sodium 100 Mg Capsule) 100 mg PO BEDTIME [facility] Last Admin: 01/02/22 20:28 Dose: 100 mg Documented by: Hydroxyzine HCl (Hydroxyzine Hcl 25 Mg Tablet) 25 mg PO BEDTIME PRN PRN Reason: Anxiety Magnesium Hydroxide (Milk Of Magnesia 30 Ml Oral.Susp) 30 ml PO DAILY PRN PRN Reason: Constipation Mirtazapine (Mirtazapine 15 Mg Tablet) 15 mg PO BEDTIME [facility] Last Admin: 01/02/22 20:28 Dose: 15 mg Documented by: Multi-Ingred Cream/Lotion/Oil/Oint (Mineral Oil/Petrolatum,White 106 Gm Tube) 1 appl TOPICAL BID [facility]; Protocol Last Admin: 01/03/22 09:12 Dose: Not Given Documented by: Multivitamins/Vitamin C (Multivitamin Tablet) 1 tab PO DAILY [facility] Last Admin: 01/03/22 09:11 Dose: 1 tab Documented by: Oxcarbazepine (Oxcarbazepine 300 Mg Tablet) 300 mg PO BID [facility] Last Admin: 01/03/22 09:11 Dose: 300 mg Documented by: Risperidone (Risperidone 2 Mg Tablet) 2 mg PO BEDTIME [facility] Last Admin: 01/02/22 20:28 Dose: 2 mg Documented by: Trazodone HCl (Trazodone Hcl 50 Mg Tablet) 50 mg PO BEDTIME PRN PRN Reason: Insomnia Allergies Allergies Allergy/AdvReac Type Severity Reaction Status Date / Time No Known Allergies Allergy Verified 12/26/21 15:32 Assessment & Plan Assessment & Plan (1) Major depression with psychotic features: Status: Acute Code(s): F32.3 - Major depressive disorder, single episode, severe with psychotic features Plan 51 yo female presents with symptoms of paranoia, psychosis without history of illness. ADL's have declined and pt in the ER experiencing delusions of persecution, derealization and depersonalization. Today, she asks how to leave, have very poor spatial boundaries-staring into tw eyes and violating personal space often during our meeting. Medical clearance from sending facility is limited. Will begin with this eval. Psychosocially, pt has lost both parents in 2016 and 2017 and per family has not grieved adequately. Youngest son has moved from the family home in summer 2020 and reportedly has a history of depression with SI. 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 Pt not eating or sleeping well, anxious and wandering the unit asking to leave. Plan: Remeron 15 mg HS- target sx sleep, appetite Risperdal 1 mg HS-target sx to clarify thought process, decrease paranoia CMP, TSH, B12, Folate, Vit D, A1C, Lipids EKG MRI Brain-new onset psychosis in the absence of history. EEG MVI i tablet daily 12/28/21: Continue medical work up and current regime Pt appears improved today. Ongoing collateral contact-it appears history of symptoms is longer than initially known. ? R/O PTSD 12/30 remains disorganized, perseverating on non-sensical worries; -increase risperdal to 2mg qhs 12/31/21 Pt has signed a Section X Add Risperdal 1mg a.m. Begin Trileptal 300 mg bid 01/03/22 Decrease Mirtazapine to 7.5 mg HS Decrease Trileptal to 300 mg HS CBCD, BMP Vitamin D 25 mcg daily I spent minutes with the patient and/or on the patient floor today, greater than?50% of which was spent counseling/coordinating care. Reason for contiued inpatient stay Substantial Risk for: harm to self, harm to others, inability to function and rapid decompensation
[2022-01-03 18:00] VITALS: BP 117/68; PULSE 84; RESP 18; TEMP 36.4; O2SAT 98
[2022-01-03] MEDS: Mirtazapine 7.5 MG TABLET PO (20:38)
[2022-01-03] MEDS: Docusate Sodium 100 MG CAPSULE PO (20:38)
[2022-01-03] MEDS: risperiDONE 2 MG TABLET PO (20:38)
[2022-01-04 06:00] VITALS: BP 101/59; PULSE 80; RESP 16; TEMP 36.3; O2SAT 98
[2022-01-04 08:52] LABS: MANUAL DIFF FLAG NO
[2022-01-04] MEDS: Cholecalciferol (Vitamin D3) 25 MCG TABLET PO (08:58)
[2022-01-04] MEDS: Multivitamin TABLET 1 TAB PO (08:58)
[2022-01-04] MEDS: Mineral Oil/Petrolatum,White 106 GM Tube 1 APPL TOPICAL (09:01)
[2022-01-04 09:03] LABS: Basophils Percent Auto 0.5 % (0-2); Eosinophils Absolute Auto 0.1 X10*3/uL (0.0-0.4); Eosinophils Percent Auto 2.8 % (0-4); Hematocrit 37.6 % (37.0-47.0); Hemoglobin 11.9 g/dl (12.0-16.0); Imm Gran Abs Auto 0.01 X10*3/uL (0.00-0.03); Imm Gran Pct Auto 0.2 % (0.0-0.4); Lymphocytes Absolute Auto 1.8 X10*3/uL (1.2-4.9); Lymphocytes Percent Auto 43.2 % (20-40); Mean Corpuscular HGB Conc 31.6 g/dl (31.0-35.0); Mean Corpuscular Volume 94.7 fL (80.0-98.0); Mean Platelet Volume 10.5 fL (9.4-12.3); Monocytes Absolute Auto 0.4 X10*3/uL (0.1-1.2); Monocytes Percent Auto 9.6 % (2-11); Neutrophils Absolute Auto 1.9 x10*3/uL (2.0-8.3); Neutrophils Percent Auto 43.7 % (45-73); Platelet Count 199 X10*3/uL (160-400); Red Blood Count 3.97 X10*6/uL (4.20-5.50); Red Cell Distribution Width 11.4 % (11.0-16.0); White Blood Count 4.3 X10*3/uL (4.8-10.8)
[2022-01-04 09:13] LABS: Anion Gap 12 (12-20); Blood Urea Nitrogen 16 mg/dL (9-16); Calcium 8.7 mg/dL (8.4-10.2); Carbon Dioxide 26 mmol/L (22-29); Chloride 107 mmol/L (96-108); Creatinine Clr Calc Pharmacy 76.8; Estimated Glomerular Filt Rate > 60; Glucose Random 89 mg/dL (60-115); Potassium 4.2 mmol/L (3.3-5.1); Sodium 141 mmol/L (135-145)
--- NOTE | 2022-01-04 15:42 | HO.PSYCHPN ---
Subjective Subjective Date of Service: 01/04/22 Reason For Visit: Psychotic d/o Subjective Notes: Conditional Voluntary Healthcare Proxy: No Guardianship: No Medical Problems Affecting Mental Status: No Interim History: I feel depressed because I miss being at home with Barak Discussed discharge today-tentative date of next week, ?Friday if all is well. Reports feeling improved, less medicated, wanting to try it at home. Reviewed with Barak who last evening found her anxious, depressed. This weekend he will attempt to see her individually and in the group setting. Pt continues to decline MRI. would like her to have this and will discuss with her. Medication Compliance: Yes Side effects from medications: No Attending Groups: Yes Review of Systems Acute medical concerns: No Medical Review of Systems: unchanged Review of Systems Reports behavioral changes Psychiatric: Reports anxiety, Reports behavioral changes, Reports change in appetite (states she is eating meals), Reports depression, Reports difficulty concentrating, Reports irritability, Reports anhedonia, Reports mood swings and Reports paranoia Mental Status Exam Mental Status Exam Patient Appearance: Disheveled Patient Orientation: Person, Place, Time and Situation Level of Consciousness: Alert Patient Behavior: Guarded, Talkative, Cooperative, Suspicious, Anxious, Fearful, Fatigued, Distractible, Confused and Good Eye Contact Mood Description: Depressed and Anxious Affect Description: Flat Patient Cognition Impaired: No Ability to Follow Directions: Good Speech Pattern: Spontaneous Speech Memory Description: Episodic Impaired Hallucinations: None Delusions: Paranoid Ideation Thought Process: Illogical, Distracted and Rumination Thought Content: positive for [place], positive for Circumstantial, positive for Perseveration, positive for Preoccupation and positive for Suicidal Ideation (denies) Depressive Symptoms: Increased Anxiety, Diff. Making Decisions and Unhappiness Judgement: Poor Diagnostics Vital Signs (24Hr): Vital Signs - 24 hr 01/03/22 18:00 01/04/22 06:00 Temperature 97.5 F 97.4 F Pulse Rate 84 80 Respiratory Rate 18 16 Blood Pressure 117/68 101/59 L Pulse Oximetry 98 98 BMI result Body Mass Index 23.1 Labs Results: 01/04/22 07:59 01/04/22 07:59 Labs: Laboratory Results - last 48 hr 01/04/22 01/04/22 07:59 07:59 WBC 4.3 L RBC 3.97 L Hgb 11.9 L Hct 37.6 MCV 94.7 MCH 30.0 MCHC 31.6 RDW 11.4 Plt Count 199 MPV 10.5 Immature Gran % (Auto) 0.2 Neut % (Auto) 43.7 L Lymph % (Auto) 43.2 H [place] % (Auto) 9.6 Eos % (Auto) 2.8 Baso % (Auto) 0.5 Lymph # (Auto) 1.8 [place] # (Auto) 0.4 Eos # (Auto) 0.1 Baso # (Auto) 0.0 Abs Immat Gran (auto) 0.01 Absolute Neuts (auto) 1.9 L Absolute Nucleated RBC 0.000 Nucleated RBC % (auto) 0.0 Sodium 141 Potassium 4.2 Chloride 107 Carbon Dioxide 26 Anion Gap 12 BUN 16 Creatinine 0.70 Estim Creat Clear Calc 76.8 Estimated GFR > 60 Random Glucose 89 Calcium 8.7 D Medications Medications Current Medications Acetaminophen (Acetaminophen 325 Mg Tablet) 650 mg PO Q6H PRN PRN Reason: Headache/Pain Mild Scale (1-3) Al Hydroxide/Mg Hydroxide (Magnesium Hydrox/Alum Hydrox 30 Ml Oral.Susp) 30 ml PO Q6H PRN PRN Reason: Heartburn/Nausea Docusate Sodium (Docusate Sodium 100 Mg Capsule) 100 mg PO BEDTIME [facility] Last Admin: 01/03/22 20:38 Dose: 100 mg Documented by: Hydroxyzine HCl (Hydroxyzine Hcl 25 Mg Tablet) 25 mg PO BEDTIME PRN PRN Reason: Anxiety Magnesium Hydroxide (Milk Of Magnesia 30 Ml Oral.Susp) 30 ml PO DAILY PRN PRN Reason: Constipation Mirtazapine (Mirtazapine 7.5 Mg Tablet) 7.5 mg PO BEDTIME [facility] Last Admin: 01/03/22 20:38 Dose: 7.5 mg Documented by: Multi-Ingred Cream/Lotion/Oil/Oint (Mineral Oil/Petrolatum,White 106 Gm Tube) 1 appl TOPICAL BID [facility]; Protocol Last Admin: 01/04/22 09:01 Dose: 1 appl Documented by: Multivitamins/Vitamin C (Multivitamin Tablet) 1 tab PO DAILY [facility] Last Admin: 01/04/22 08:58 Dose: 1 tab Documented by: Oxcarbazepine (Oxcarbazepine 300 Mg Tablet) 300 mg PO BEDTIME [facility] Last Admin: 01/03/22 20:38 Dose: 300 mg Documented by: Risperidone (Risperidone 2 Mg Tablet) 2 mg PO BEDTIME [facility] Last Admin: 01/03/22 20:38 Dose: 2 mg Documented by: Trazodone HCl (Trazodone Hcl 50 Mg Tablet) 50 mg PO BEDTIME PRN PRN Reason: Insomnia Vitamin D (Cholecalciferol (Vitamin D3) 25 Mcg Tablet) 25 mcg PO DAILY [facility] Last Admin: 01/04/22 08:58 Dose: 25 mcg Documented by: Allergies Allergies Allergy/AdvReac Type Severity Reaction Status Date / Time No Known Allergies Allergy Verified 12/26/21 15:32 Assessment & Plan Assessment & Plan (1) Major depression with psychotic features: Status: Acute Code(s): F32.3 - Major depressive disorder, single episode, severe with psychotic features Plan 51 yo female presents with symptoms of paranoia, psychosis without history of illness. ADL's have declined and pt in the ER experiencing delusions of persecution, derealization and depersonalization. Today, she asks how to leave, have very poor spatial boundaries-staring into tw eyes and violating personal space often during our meeting. Medical clearance from sending facility is limited. Will begin with this eval. Psychosocially, pt has lost both parents in 2016 and 2017 and per family has not grieved adequately. Youngest son has moved from the family home in summer 2020 and reportedly has a history of depression with SI. 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 Pt not eating or sleeping well, anxious and wandering the unit asking to leave. Plan: Remeron 15 mg HS- target sx sleep, appetite Risperdal 1 mg HS-target sx to clarify thought process, decrease paranoia CMP, TSH, B12, Folate, Vit D, A1C, Lipids EKG MRI Brain-new onset psychosis in the absence of history. EEG MVI i tablet daily 12/28/21: Continue medical work up and current regime Pt appears improved today. Ongoing collateral contact-it appears history of symptoms is longer than initially known. ? R/O PTSD 12/30 remains disorganized, perseverating on non-sensical worries; -increase risperdal to 2mg qhs 12/31/21 Pt has signed a Section X Add Risperdal 1mg a.m. Begin Trileptal 300 mg bid 01/03/22 Decrease Mirtazapine to 7.5 mg HS Decrease Trileptal to 300 mg HS CBCD, BMP Vitamin D 25 mcg daily 01/04/22 Continue current regime I spent minutes with the patient and/or on the patient floor today, greater than?50% of which was spent counseling/coordinating care. Patient educated on: medication risk/benefits and therapeutic strategies Informed Consent: further education needed Reason for contiued inpatient stay Substantial Risk for: inability to function and rapid decompensation
[2022-01-04 17:00] VITALS: BP 108/68; PULSE 92; TEMP 36.4
[2022-01-04] MEDS: Docusate Sodium 100 MG CAPSULE PO (21:46)
[2022-01-04] MEDS: risperiDONE 2 MG TABLET PO (21:47)
[2022-01-04] MEDS: Mirtazapine 7.5 MG TABLET PO (21:47)
[2022-01-04] MEDS: OXcarbazepine 300 MG TABLET PO (21:47)
[2022-01-05 06:00] VITALS: BP 111/62; PULSE 86; RESP 18; TEMP 36.5; O2SAT 99
[2022-01-05] MEDS: Mineral Oil/Petrolatum,White 106 GM Tube 1 APPL TOPICAL (09:07)
[2022-01-05] MEDS: Cholecalciferol (Vitamin D3) 25 MCG TABLET PO (09:07)
[2022-01-05] MEDS: Multivitamin TABLET 1 TAB PO (09:07)
--- NOTE | 2022-01-05 09:22 | HO.PSYCHPN ---
Subjective Subjective Date of Service: 01/05/22 Reason For Visit: Psychotic d/o Subjective Notes: Conditional Voluntary Interim History: Patient was seen and discussed in rounds today. She has been isolative. No complaints of depression or anxiety. No SI/HI. Continues to be slightly suspicious. Eating and sleeping adequately. She is probably being discharged early next week. No side effects reported. No changes were made today Diagnostics Vital Signs (24Hr): Vital Signs - 24 hr 01/04/22 17:00 01/05/22 06:00 Temperature 97.6 F 97.7 F Pulse Rate 92 86 Respiratory Rate 18 Blood Pressure 108/68 111/62 Pulse Oximetry 99 BMI result Body Mass Index 23.1 Labs Results: 01/04/22 07:59 01/04/22 07:59 Labs: Laboratory Results - last 48 hr 01/04/22 01/04/22 07:59 07:59 WBC 4.3 L RBC 3.97 L Hgb 11.9 L Hct 37.6 MCV 94.7 MCH 30.0 MCHC 31.6 RDW 11.4 Plt Count 199 MPV 10.5 Immature Gran % (Auto) 0.2 Neut % (Auto) 43.7 L Lymph % (Auto) 43.2 H [place] % (Auto) 9.6 Eos % (Auto) 2.8 Baso % (Auto) 0.5 Lymph # (Auto) 1.8 [place] # (Auto) 0.4 Eos # (Auto) 0.1 Baso # (Auto) 0.0 Abs Immat Gran (auto) 0.01 Absolute Neuts (auto) 1.9 L Absolute Nucleated RBC 0.000 Nucleated RBC % (auto) 0.0 Sodium 141 Potassium 4.2 Chloride 107 Carbon Dioxide 26 Anion Gap 12 BUN 16 Creatinine 0.70 Estim Creat Clear Calc 76.8 Estimated GFR > 60 Random Glucose 89 Calcium 8.7 D Medications Medications Current Medications Acetaminophen (Acetaminophen 325 Mg Tablet) 650 mg PO Q6H PRN PRN Reason: Headache/Pain Mild Scale (1-3) Al Hydroxide/Mg Hydroxide (Magnesium Hydrox/Alum Hydrox 30 Ml Oral.Susp) 30 ml PO Q6H PRN PRN Reason: Heartburn/Nausea Docusate Sodium (Docusate Sodium 100 Mg Capsule) 100 mg PO BEDTIME [facility] Last Admin: 01/04/22 21:46 Dose: 100 mg Documented by: Hydroxyzine HCl (Hydroxyzine Hcl 25 Mg Tablet) 25 mg PO BEDTIME PRN PRN Reason: Anxiety Magnesium Hydroxide (Milk Of Magnesia 30 Ml Oral.Susp) 30 ml PO DAILY PRN PRN Reason: Constipation Mirtazapine (Mirtazapine 7.5 Mg Tablet) 7.5 mg PO BEDTIME [facility] Last Admin: 01/04/22 21:47 Dose: 7.5 mg Documented by: Multi-Ingred Cream/Lotion/Oil/Oint (Mineral Oil/Petrolatum,White 106 Gm Tube) 1 appl TOPICAL BID [facility]; Protocol Last Admin: 01/05/22 09:07 Dose: 1 appl Documented by: Multivitamins/Vitamin C (Multivitamin Tablet) 1 tab PO DAILY [facility] Last Admin: 01/05/22 09:07 Dose: 1 tab Documented by: Oxcarbazepine (Oxcarbazepine 300 Mg Tablet) 300 mg PO BEDTIME [facility] Last Admin: 01/04/22 21:47 Dose: 300 mg Documented by: Risperidone (Risperidone 2 Mg Tablet) 2 mg PO BEDTIME [facility] Last Admin: 01/04/22 21:47 Dose: 2 mg Documented by: Trazodone HCl (Trazodone Hcl 50 Mg Tablet) 50 mg PO BEDTIME PRN PRN Reason: Insomnia Vitamin D (Cholecalciferol (Vitamin D3) 25 Mcg Tablet) 25 mcg PO DAILY [facility] Last Admin: 01/05/22 09:07 Dose: 25 mcg Documented by: Allergies Allergies Allergy/AdvReac Type Severity Reaction Status Date / Time No Known Allergies Allergy Verified 12/26/21 15:32 Assessment & Plan Assessment & Plan (1) Major depression with psychotic features: Status: Acute Code(s): F32.3 - Major depressive disorder, single episode, severe with psychotic features Plan 51 yo female presents with symptoms of paranoia, psychosis without history of illness. ADL's have declined and pt in the ER experiencing delusions of persecution, derealization and depersonalization. Today, she asks how to leave, have very poor spatial boundaries-staring into tw eyes and violating personal space often during our meeting. Medical clearance from sending facility is limited. Will begin with this eval. Psychosocially, pt has lost both parents in 2017 and 2018 and per family has not grieved adequately. Youngest son has moved from the family home in summer 2020 and reportedly has a history of depression with SI. 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 Pt not eating or sleeping well, anxious and wandering the unit asking to leave. Plan: Remeron 15 mg HS- target sx sleep, appetite Risperdal 1 mg HS-target sx to clarify thought process, decrease paranoia CMP, TSH, B12, Folate, Vit D, A1C, Lipids EKG MRI Brain-new onset psychosis in the absence of history. EEG MVI i tablet daily 12/28/21: Continue medical work up and current regime Pt appears improved today. Ongoing collateral contact-it appears history of symptoms is longer than initially known. ? R/O PTSD 12/30 remains disorganized, perseverating on non-sensical worries; -increase risperdal to 2mg qhs 12/31/21 Pt has signed a Section X Add Risperdal 1mg a.m. Begin Trileptal 300 mg bid 01/03/22 Decrease Mirtazapine to 7.5 mg HS Decrease Trileptal to 300 mg HS CBCD, BMP Vitamin D 25 mcg daily 01/04/22 Continue current regime 01/06/2022: Continue current regimen and plans. No changes were made today I spent minutes with the patient and/or on the patient floor today, greater than?50% of which was spent counseling/coordinating care. Reason for contiued inpatient stay Substantial Risk for: other
[2022-01-05] MEDS: hydrOXYzine HCL 25 MG TABLET PO (14:18)
[2022-01-05 18:00] VITALS: BP 92/59; PULSE 75; TEMP 36.4
[2022-01-05] MEDS: Mirtazapine 7.5 MG TABLET PO (21:34)
[2022-01-05] MEDS: OXcarbazepine 300 MG TABLET PO (21:35)
[2022-01-05] MEDS: risperiDONE 2 MG TABLET PO (21:35)
[2022-01-05] MEDS: Docusate Sodium 100 MG CAPSULE PO (21:35)
[2022-01-06 06:00] VITALS: BP 110/64; PULSE 78; RESP 18; TEMP 36.6; O2SAT 99
--- NOTE | 2022-01-06 08:23 | P.PNPSI_ITS ---
Subjective Subjective Date of Service: 01/06/22 Reason For Visit: Psychotic d/o Subjective Notes: Conditional Voluntary Interim History: Patient was seen and discussed in rounds today. She continues to be social with no complaints but also continues to be paranoid and fearful. No auditory or visual hallucinations. No suicid ideations. She to talk a little bit about the reasons that led her to be hospitalized. She also talked a little about her family history of psychiatric problems but non very specifically. He. No changes were made Side effects from medications: Yes Attending Groups: No Review of Systems Acute medical concerns: No Review of Systems Reports behavioral changes Psychiatric: Reports anxiety, Reports behavioral changes, Reports change in appetite (states she is eating meals), Reports depression, Reports difficulty concentrating, Reports irritability, Reports anhedonia, Reports mood swings and Reports paranoia Mental Status Exam Mental Status Exam Narrative: In today's visit she is alert, oriented and pleasant. She was laying comfortably in bed. Speech is soft-spoken. Good eye contact. Affect is constricted. Mood is depressed. She denies any auditory or visual hallucinations. She denies any SI. Cognitively she has slow thought processes. Judgment and Diagnostics Vital Signs (24Hr): Vital Signs - 24 hr 01/05/22 18:00 01/06/22 06:00 Temperature 97.5 F 97.8 F Pulse Rate 75 78 Respiratory Rate 18 Blood Pressure 92/59 L 110/64 Pulse Oximetry 99 BMI result Body Mass Index 23.1 Labs Results: 01/04/22 07:59 01/04/22 07:59 Labs: Laboratory Results - last 48 hr 01/04/22 01/04/22 07:59 07:59 WBC 4.3 L RBC 3.97 L Hgb 11.9 L Hct 37.6 MCV 94.7 MCH 30.0 MCHC 31.6 RDW 11.4 Plt Count 199 MPV 10.5 Immature Gran % (Auto) 0.2 Neut % (Auto) 43.7 L Lymph % (Auto) 43.2 H [place] % (Auto) 9.6 Eos % (Auto) 2.8 Baso % (Auto) 0.5 Lymph # (Auto) 1.8 [place] # (Auto) 0.4 Eos # (Auto) 0.1 Baso # (Auto) 0.0 Abs Immat Gran (auto) 0.01 Absolute Neuts (auto) 1.9 L Absolute Nucleated RBC 0.000 Nucleated RBC % (auto) 0.0 Sodium 141 Potassium 4.2 Chloride 107 Carbon Dioxide 26 Anion Gap 12 BUN 16 Creatinine 0.70 Estim Creat Clear Calc 76.8 Estimated GFR > 60 Random Glucose 89 Calcium 8.7 D Medications Medications Current Medications Acetaminophen (Acetaminophen 325 Mg Tablet) 650 mg PO Q6H PRN PRN Reason: Headache/Pain Mild Scale (1-3) Al Hydroxide/Mg Hydroxide (Magnesium Hydrox/Alum Hydrox 30 Ml Oral.Susp) 30 ml PO Q6H PRN PRN Reason: Heartburn/Nausea Docusate Sodium (Docusate Sodium 100 Mg Capsule) 100 mg PO BEDTIME [facility] Last Admin: 01/05/22 21:35 Dose: 100 mg Documented by: Hydroxyzine HCl (Hydroxyzine Hcl 25 Mg Tablet) 25 mg PO BEDTIME PRN PRN Reason: Anxiety Last Admin: 01/05/22 14:18 Dose: 25 mg Documented by: Magnesium Hydroxide (Milk Of Magnesia 30 Ml Oral.Susp) 30 ml PO DAILY PRN PRN Reason: Constipation Mirtazapine (Mirtazapine 7.5 Mg Tablet) 7.5 mg PO BEDTIME [facility] Last Admin: 01/05/22 21:34 Dose: 7.5 mg Documented by: Multi-Ingred Cream/Lotion/Oil/Oint (Mineral Oil/Petrolatum,White 106 Gm Tube) 1 appl TOPICAL BID [facility]; Protocol Last Admin: 01/05/22 23:42 Dose: Not Given Documented by: Multivitamins/Vitamin C (Multivitamin Tablet) 1 tab PO DAILY [facility] Last Admin: 01/05/22 09:07 Dose: 1 tab Documented by: Oxcarbazepine (Oxcarbazepine 300 Mg Tablet) 300 mg PO BEDTIME [facility] Last Admin: 01/05/22 21:35 Dose: 300 mg Documented by: Quetiapine Fumarate (Quetiapine Fumarate 25 Mg Tablet) 25 mg PO Q4H PRN PRN Reason: Anxiety Risperidone (Risperidone 2 Mg Tablet) 2 mg PO BEDTIME [facility] Last Admin: 01/05/22 21:35 Dose: 2 mg Documented by: Trazodone HCl (Trazodone Hcl 50 Mg Tablet) 50 mg PO BEDTIME PRN PRN Reason: Insomnia Vitamin D (Cholecalciferol (Vitamin D3) 25 Mcg Tablet) 25 mcg PO DAILY [facility] Last Admin: 01/05/22 09:07 Dose: 25 mcg Documented by: Allergies Allergies Allergy/AdvReac Type Severity Reaction Status Date / Time No Known Allergies Allergy Verified 12/26/21 15:32 Assessment & Plan Assessment & Plan (1) Major depression with psychotic features: Status: Acute Code(s): F32.3 - Major depressive disorder, single episode, severe with psychotic features Plan 51 yo female presents with symptoms of paranoia, psychosis without history of illness. ADL's have declined and pt in the ER experiencing delusions of persecution, derealization and depersonalization. Today, she asks how to leave, have very poor spatial boundaries-staring into tw eyes and violating personal space often during our meeting. Medical clearance from sending facility is limited. Will begin with this eval. Psychosocially, pt has lost both parents in 2016 and 2017 and per family has not grieved adequately. Youngest son has moved from the family home in summer 2020 and reportedly has a history of depression with SI. Pt is not currently employed but is a college graduate in business a [employer]. Pt not eating or sleeping well, anxious and wandering the unit asking to leave. Plan: Remeron 15 mg HS- target sx sleep, appetite Risperdal 1 mg HS-target sx to clarify thought process, decrease paranoia CMP, TSH, B12, Folate, Vit D, A1C, Lipids EKG MRI Brain-new onset psychosis in the absence of history. EEG MVI i tablet daily 12/28/21: Continue medical work up and current regime Pt appears improved today. Ongoing collateral contact-it appears history of symptoms is longer than initially known. ? R/O PTSD 12/30 remains disorganized, perseverating on non-sensical worries; -increase risperdal to 2mg qhs 12/31/21 Pt has signed a Section X Add Risperdal 1mg a.m. Begin Trileptal 300 mg bid 01/03/22 Decrease Mirtazapine to 7.5 mg HS Decrease Trileptal to 300 mg HS CBCD, BMP Vitamin D 25 mcg daily 01/04/22 Continue current regime 01/05/2022: Continue current regimen and plans. No changes were made today 01/06/2022: Continue current regimen and plans with no change I spent minutes with the patient and/or on the patient floor today, greater than?50% of which was spent counseling/coordinating care. Reason for contiued inpatient stay Substantial Risk for: med/psych decompensation
[2022-01-06] MEDS: Multivitamin TABLET 1 TAB PO (08:39)
[2022-01-06] MEDS: Cholecalciferol (Vitamin D3) 25 MCG TABLET PO (08:39)
[2022-01-06 18:00] VITALS: BP 100/58; PULSE 81; RESP 18; TEMP 36.5; O2SAT 98
[2022-01-06] MEDS: Mirtazapine 7.5 MG TABLET PO (21:27)
[2022-01-06] MEDS: OXcarbazepine 300 MG TABLET PO (21:27)
[2022-01-06] MEDS: Docusate Sodium 100 MG CAPSULE PO (21:27)
[2022-01-06] MEDS: risperiDONE 2 MG TABLET PO (21:27)
[2022-01-07 06:00] VITALS: BP 106/58; PULSE 79; RESP 18; TEMP 36.4; O2SAT 99
[2022-01-07] MEDS: Multivitamin TABLET 1 TAB PO (08:41)
[2022-01-07] MEDS: Cholecalciferol (Vitamin D3) 25 MCG TABLET PO (08:41)
--- NOTE | 2022-01-07 11:04 | HO.PSYCHPN ---
Subjective Subjective Date of Service: 01/07/22 Reason For Visit: Psychotic d/o Subjective Notes: Conditional Voluntary Interim History: Pt wanting to go home. Anxious, childlike at times. Discussed with via phone who reports pt was calm with an increase in paranoia on 01/04, she was anxious, paranoid on 01/05 and at baseline on 01/06. Met with pt and -pt eating tacos, tearful at times, wanting to go home. reports this is about baseline except for intermittent paranoia, pt commenting I'm afraid I will be accused on something while I am here (possibly related to some childhood issues with her experience). Both do not want any med changes or increases as they both believe pt will not need meds. interested in a referral to Ivanna at [facility] in [place]. Pt was referred there for holistic therapy. Discussed discharge date for 01/10. Pt and ask for 10 am. Full medication review with both. Medication Compliance: Yes Side effects from medications: No Attending Groups: Yes Review of Systems Acute medical concerns: No Medical Review of Systems: unchanged Review of Systems Psychiatric: Reports anxiety, Reports change in appetite (increase), Reports anhedonia and Reports paranoia Mental Status Exam Mental Status Exam Patient Appearance: Appropriate Patient Orientation: Person, Place, Time and Situation Level of Consciousness: Alert Patient Behavior: Talkative and Good Eye Contact Mood Description: Anxious Affect Description: Apprehensive Patient Cognition Impaired: No Ability to Follow Directions: Good Speech Pattern: Spontaneous Speech Memory Description: Intact Hallucinations: None Delusions: Paranoid Ideation Thought Process: Distracted and Rumination Thought Content: positive for [place] and positive for Circumstantial Depressive Symptoms: Increased Anxiety Abnormal Motor Activity Signs and Symptoms: Restlessness Judgement: Good Diagnostics Vital Signs (24Hr): Vital Signs - 24 hr 01/06/22 18:00 01/07/22 06:00 Temperature 97.7 F 97.6 F Pulse Rate 81 79 Respiratory Rate 18 18 Blood Pressure 100/58 L 106/58 L Pulse Oximetry 98 99 BMI result Body Mass Index 23.1 Labs Results: 01/04/22 07:59 01/04/22 07:59 Medications Medications Current Medications Acetaminophen (Acetaminophen 325 Mg Tablet) 650 mg PO Q6H PRN PRN Reason: Headache/Pain Mild Scale (1-3) Al Hydroxide/Mg Hydroxide (Magnesium Hydrox/Alum Hydrox 30 Ml Oral.Susp) 30 ml PO Q6H PRN PRN Reason: Heartburn/Nausea Docusate Sodium (Docusate Sodium 100 Mg Capsule) 100 mg PO BEDTIME [facility] Last Admin: 01/06/22 21:27 Dose: 100 mg Documented by: Hydroxyzine HCl (Hydroxyzine Hcl 25 Mg Tablet) 25 mg PO BEDTIME PRN PRN Reason: Anxiety Last Admin: 01/05/22 14:18 Dose: 25 mg Documented by: Magnesium Hydroxide (Milk Of Magnesia 30 Ml Oral.Susp) 30 ml PO DAILY PRN PRN Reason: Constipation Mirtazapine (Mirtazapine 7.5 Mg Tablet) 7.5 mg PO BEDTIME [facility] Last Admin: 01/06/22 21:27 Dose: 7.5 mg Documented by: Multi-Ingred Cream/Lotion/Oil/Oint (Mineral Oil/Petrolatum,White 106 Gm Tube) 1 appl TOPICAL BID [facility]; Protocol Last Admin: 01/07/22 08:41 Dose: Not Given Documented by: Multivitamins/Vitamin C (Multivitamin Tablet) 1 tab PO DAILY [facility] Last Admin: 01/07/22 08:41 Dose: 1 tab Documented by: Oxcarbazepine (Oxcarbazepine 300 Mg Tablet) 300 mg PO BEDTIME [facility] Last Admin: 01/06/22 21:27 Dose: 300 mg Documented by: Quetiapine Fumarate (Quetiapine Fumarate 25 Mg Tablet) 25 mg PO Q4H PRN PRN Reason: Anxiety Risperidone (Risperidone 2 Mg Tablet) 2 mg PO BEDTIME [facility] Last Admin: 01/06/22 21:27 Dose: 2 mg Documented by: Trazodone HCl (Trazodone Hcl 50 Mg Tablet) 50 mg PO BEDTIME PRN PRN Reason: Insomnia Vitamin D (Cholecalciferol (Vitamin D3) 25 Mcg Tablet) 25 mcg PO DAILY [facility] Last Admin: 01/07/22 08:41 Dose: 25 mcg Documented by: Allergies Allergies Allergy/AdvReac Type Severity Reaction Status Date / Time No Known Allergies Allergy Verified 12/26/21 15:32 Assessment & Plan Assessment & Plan (1) Major depression with psychotic features: Status: Acute Code(s): F32.3 - Major depressive disorder, single episode, severe with psychotic features Plan 51 yo female presents with symptoms of paranoia, psychosis without history of illness. ADL's have declined and pt in the ER experiencing delusions of persecution, derealization and depersonalization. Today, she asks how to leave, have very poor spatial boundaries-staring into tw eyes and violating personal space often during our meeting. Medical clearance from sending facility is limited. Will begin with this eval. Psychosocially, pt has lost both parents in 2016 and 2017 and per family has not grieved adequately. Youngest son has moved from the family home in summer 2020 and reportedly has a history of depression with SI. 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 Pt not eating or sleeping well, anxious and wandering the unit asking to leave. Plan: Remeron 15 mg HS- target sx sleep, appetite Risperdal 1 mg HS-target sx to clarify thought process, decrease paranoia CMP, TSH, B12, Folate, Vit D, A1C, Lipids EKG MRI Brain-new onset psychosis in the absence of history. EEG MVI i tablet daily 12/28/21: Continue medical work up and current regime Pt appears improved today. Ongoing collateral contact-it appears history of symptoms is longer than initially known. ? R/O PTSD 12/30 remains disorganized, perseverating on non-sensical worries; -increase risperdal to 2mg qhs 12/31/21 Pt has signed a Section X Add Risperdal 1mg a.m. Begin Trileptal 300 mg bid 01/03/22 Decrease Mirtazapine to 7.5 mg HS Decrease Trileptal to 300 mg HS CBCD, BMP Vitamin D 25 mcg daily 01/04/22 Continue current regime 01/05/2022: Continue current regimen and plans. No changes were made today 01/06/2022: Continue current regimen and plans with no change 01/07/22: Continue current plan. Pt/ asks for no med changes. Discharge tentative 01/10/22. I spent minutes with the patient and/or on the patient floor today, greater than?50% of which was spent counseling/coordinating care. Patient educated on: medication risk/benefits and therapeutic strategies Informed Consent: further education needed Reason for contiued inpatient stay Substantial Risk for: inability to function and rapid decompensation
[2022-01-07 20:30] VITALS: BP 92/51; PULSE 74; TEMP 36.8
[2022-01-07] MEDS: Mirtazapine 7.5 MG TABLET PO (21:18)
[2022-01-07] MEDS: OXcarbazepine 300 MG TABLET PO (21:18)
[2022-01-07] MEDS: risperiDONE 2 MG TABLET PO (21:18)
[2022-01-07] MEDS: Docusate Sodium 100 MG CAPSULE PO (21:18)
[2022-01-08 06:00] VITALS: BP 97/52; PULSE 79; RESP 16; TEMP 36.5; O2SAT 98
[2022-01-08] MEDS: Multivitamin TABLET 1 TAB PO (09:30)
[2022-01-08] MEDS: Cholecalciferol (Vitamin D3) 25 MCG TABLET PO (09:30)
--- NOTE | 2022-01-08 18:38 | P.PNPSI_ITS ---
Subjective Subjective Date of Service: 01/08/22 Reason For Visit: Psychotic d/o Interim History: Joy reports she is feeling good. She has attended groups, was visited by her son which she was excited by and continues with anxiety and apprehension about going home. She reports she believes meds are working and worries if she takes more she will feel sedate. Weight today 63.4 an increase from 59.1 on admit. She and are planning a discharge on 01/10/22 10am Medication Compliance: Yes Side effects from medications: No Attending Groups: Yes Review of Systems Acute medical concerns: No Medical Review of Systems: unchanged Review of Systems Psychiatric: Reports anxiety Mental Status Exam Mental Status Exam Patient Appearance: Appropriate Patient Orientation: Person, Place, Time and Situation Level of Consciousness: Alert Patient Behavior: Talkative and Good Eye Contact Mood Description: Anxious Affect Description: Apprehensive Patient Cognition Impaired: No Ability to Follow Directions: Good Speech Pattern: Spontaneous Speech Memory Description: Intact Hallucinations: None Delusions: Paranoid Ideation Thought Process: Distracted and Rumination Thought Content: positive for [place] and positive for Circumstantial Depressive Symptoms: Increased Anxiety Abnormal Motor Activity Signs and Symptoms: Restlessness Judgement: Good Diagnostics Vital Signs (24Hr): Vital Signs - 24 hr 01/07/22 20:30 01/08/22 06:00 Temperature 98.2 F 97.7 F Pulse Rate 74 79 Respiratory Rate 16 Blood Pressure 92/51 L 97/52 L Pulse Oximetry 98 BMI result Body Mass Index 23.1 Labs Results: 01/04/22 07:59 01/04/22 07:59 Medications Medications Current Medications Acetaminophen (Acetaminophen 325 Mg Tablet) 650 mg PO Q6H PRN PRN Reason: Headache/Pain Mild Scale (1-3) Al Hydroxide/Mg Hydroxide (Magnesium Hydrox/Alum Hydrox 30 Ml Oral.Susp) 30 ml PO Q6H PRN PRN Reason: Heartburn/Nausea Docusate Sodium (Docusate Sodium 100 Mg Capsule) 100 mg PO BEDTIME [facility] Last Admin: 01/07/22 21:18 Dose: 100 mg Documented by: Hydroxyzine HCl (Hydroxyzine Hcl 25 Mg Tablet) 25 mg PO BEDTIME PRN PRN Reason: Anxiety Last Admin: 01/05/22 14:18 Dose: 25 mg Documented by: Magnesium Hydroxide (Milk Of Magnesia 30 Ml Oral.Susp) 30 ml PO DAILY PRN PRN Reason: Constipation Mirtazapine (Mirtazapine 7.5 Mg Tablet) 7.5 mg PO BEDTIME [facility] Last Admin: 01/07/22 21:18 Dose: 7.5 mg Documented by: Multi-Ingred Cream/Lotion/Oil/Oint (Mineral Oil/Petrolatum,White 106 Gm Tube) 1 appl TOPICAL BID [facility]; Protocol Last Admin: 01/08/22 09:32 Dose: Not Given Documented by: Multivitamins/Vitamin C (Multivitamin Tablet) 1 tab PO DAILY [facility] Last Admin: 01/08/22 09:30 Dose: 1 tab Documented by: Oxcarbazepine (Oxcarbazepine 300 Mg Tablet) 300 mg PO BEDTIME [facility] Last Admin: 01/07/22 21:18 Dose: 300 mg Documented by: Quetiapine Fumarate (Quetiapine Fumarate 25 Mg Tablet) 25 mg PO Q4H PRN PRN Reason: Anxiety Risperidone (Risperidone 2 Mg Tablet) 2 mg PO BEDTIME [facility] Last Admin: 01/07/22 21:18 Dose: 2 mg Documented by: Trazodone HCl (Trazodone Hcl 50 Mg Tablet) 50 mg PO BEDTIME PRN PRN Reason: Insomnia Vitamin D (Cholecalciferol (Vitamin D3) 25 Mcg Tablet) 25 mcg PO DAILY [facility] Last Admin: 01/08/22 09:30 Dose: 25 mcg Documented by: Allergies Allergies Allergy/AdvReac Type Severity Reaction Status Date / Time No Known Allergies Allergy Verified 12/26/21 15:32 Assessment & Plan Assessment & Plan (1) Major depression with psychotic features: Status: Acute Code(s): F32.3 - Major depressive disorder, single episode, severe with psychotic features Plan 51 yo female presents with symptoms of paranoia, psychosis without history of illness. ADL's have declined and pt in the ER experiencing delusions of persecution, derealization and depersonalization. Today, she asks how to leave, have very poor spatial boundaries-staring into tw eyes and violating personal space often during our meeting. Medical clearance from sending facility is limited. Will begin with this eval. Psychosocially, pt has lost both parents in 2017 and 2018 and per family has not grieved adequately. Youngest son has moved from the family home in summer 2020 and reportedly has a history of depression with SI. 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 Pt not eating or sleeping well, anxious and wandering the unit asking to leave. Plan: Remeron 15 mg HS- target sx sleep, appetite Risperdal 1 mg HS-target sx to clarify thought process, decrease paranoia CMP, TSH, B12, Folate, Vit D, A1C, Lipids EKG MRI Brain-new onset psychosis in the absence of history. EEG MVI i tablet daily 12/28/21: Continue medical work up and current regime Pt appears improved today. Ongoing collateral contact-it appears history of symptoms is longer than initially known. ? R/O PTSD 12/30 remains disorganized, perseverating on non-sensical worries; -increase risperdal to 2mg qhs 12/31/21 Pt has signed a Section X Add Risperdal 1mg a.m. Begin Trileptal 300 mg bid 01/03/22 Decrease Mirtazapine to 7.5 mg HS Decrease Trileptal to 300 mg HS CBCD, BMP Vitamin D 25 mcg daily 01/04/22 Continue current regime 01/05/2022: Continue current regimen and plans. No changes were made today 01/06/2022: Continue current regimen and plans with no change 01/07/22: Continue current plan. Pt/ asks for no med changes. Discharge t entative 01/10/22. 01/08/22: Encourage milieu activity. Continue current regime. I spent minutes with the patient and/or on the patient floor today, greater than?50% of which was spent counseling/coordinating care. Patient educated on: medication risk/benefits and therapeutic strategies Informed Consent: understands and further education needed Reason for contiued inpatient stay Substantial Risk for: inability to function and rapid decompensation
[2022-01-08 21:30] VITALS: BP 108/69; PULSE 78; TEMP 36.5; O2SAT 98
[2022-01-08] MEDS: risperiDONE 2 MG TABLET PO (22:06)
[2022-01-08] MEDS: Mirtazapine 7.5 MG TABLET PO (22:06)
[2022-01-08] MEDS: Docusate Sodium 100 MG CAPSULE PO (22:06)
[2022-01-08] MEDS: OXcarbazepine 300 MG TABLET PO (22:06)
[2022-01-09 06:47] VITALS: BP 116/73; PULSE 91; RESP 16; TEMP 37.2; O2SAT 95
[2022-01-09] MEDS: Multivitamin TABLET 1 TAB PO (08:37)
[2022-01-09] MEDS: QUEtiapine Fumarate 25 MG TABLET PO (08:37)
[2022-01-09] MEDS: Cholecalciferol (Vitamin D3) 25 MCG TABLET PO (08:37)
--- NOTE | 2022-01-09 10:41 | P.PNPSI_ITS ---
Subjective Subjective Date of Service: 01/09/22 Reason For Visit: Psychotic d/o Interim History: Joy was anxious when discussing discharge on 01/10. She reports she plans to attend the home show with her and is looking forward to returning to her family. She did express concern about doing something wrong to ruin her discharge. She responded to reassurance. She did attend group today and was seen talking with peers at different times. We discussed that we could do more with her medications to obtain improved control of her symptoms, however, she reports she and her will most likely not continue medications and pursue holistic avenues. Medication Compliance: Yes Side effects from medications: No Attending Groups: Yes Review of Systems Acute medical concerns: No Medical Review of Systems: unchanged Review of Systems Psychiatric: Reports anxiety Mental Status Exam Mental Status Exam Patient Appearance: Appropriate Patient Orientation: Person, Place, Time and Situation Level of Consciousness: Alert Patient Behavior: Talkative and Good Eye Contact Mood Description: Anxious Affect Description: Apprehensive Patient Cognition Impaired: No Ability to Follow Directions: Good Speech Pattern: Spontaneous Speech Memory Description: Intact Hallucinations: None Delusions: Paranoid Ideation Thought Process: Distracted and Rumination Thought Content: positive for [place] and positive for Circumstantial Depressive Symptoms: Increased Anxiety Abnormal Motor Activity Signs and Symptoms: Restlessness Judgement: Good Diagnostics Vital Signs (24Hr): Vital Signs - 24 hr 01/08/22 21:30 01/09/22 06:47 Temperature 97.7 F 99 F Pulse Rate 78 91 Respiratory Rate 16 Blood Pressure 108/69 116/73 Pulse Oximetry 98 95 BMI result Body Mass Index 23.1 Labs Results: 01/04/22 07:59 01/04/22 07:59 Medications Medications Current Medications Acetaminophen (Acetaminophen 325 Mg Tablet) 650 mg PO Q6H PRN PRN Reason: Headache/Pain Mild Scale (1-3) Al Hydroxide/Mg Hydroxide (Magnesium Hydrox/Alum Hydrox 30 Ml Oral.Susp) 30 ml PO Q6H PRN PRN Reason: Heartburn/Nausea Docusate Sodium (Docusate Sodium 100 Mg Capsule) 100 mg PO BEDTIME PRASAD Last Admin: 01/08/22 22:06 Dose: 100 mg Documented by: Hydroxyzine HCl (Hydroxyzine Hcl 25 Mg Tablet) 25 mg PO BEDTIME PRN PRN Reason: Anxiety Last Admin: 01/05/22 14:18 Dose: 25 mg Documented by: Magnesium Hydroxide (Milk Of Magnesia 30 Ml Oral.Susp) 30 ml PO DAILY PRN PRN Reason: Constipation Mirtazapine (Mirtazapine 7.5 Mg Tablet) 7.5 mg PO BEDTIME [facility] Last Admin: 01/08/22 22:06 Dose: 7.5 mg Documented by: Multi-Ingred Cream/Lotion/Oil/Oint (Mineral Oil/Petrolatum,White 106 Gm Tube) 1 appl TOPICAL BID PRASAD; Protocol Last Admin: 01/08/22 22:10 Dose: Not Given Documented by: Multivitamins/Vitamin C (Multivitamin Tablet) 1 tab PO DAILY [facility] Last Admin: 01/09/22 08:37 Dose: 1 tab Documented by: Oxcarbazepine (Oxcarbazepine 300 Mg Tablet) 300 mg PO BEDTIME [facility] Last Admin: 01/08/22 22:06 Dose: 300 mg Documented by: Quetiapine Fumarate (Quetiapine Fumarate 25 Mg Tablet) 25 mg PO Q4H PRN PRN Reason: Anxiety Last Admin: 01/09/22 08:37 Dose: 25 mg Documented by: Risperidone (Risperidone 2 Mg Tablet) 2 mg PO BEDTIME [facility] Last Admin: 01/08/22 22:06 Dose: 2 mg Documented by: Trazodone HCl (Trazodone Hcl 50 Mg Tablet) 50 mg PO BEDTIME PRN PRN Reason: Insomnia Vitamin D (Cholecalciferol (Vitamin D3) 25 Mcg Tablet) 25 mcg PO DAILY [facility] Last Admin: 01/09/22 08:37 Dose: 25 mcg Documented by: Allergies Allergies Allergy/AdvReac Type Severity Reaction Status Date / Time No Known Allergies Allergy Verified 12/26/21 15:32 Assessment & Plan Assessment & Plan (1) Major depression with psychotic features: Status: Acute Code(s): F32.3 - Major depressive disorder, single episode, severe with psychotic features Plan 51 yo female presents with symptoms of paranoia, psychosis without history of illness. ADL's have declined and pt in the ER experiencing delusions of persecution, derealization and depersonalization. Today, she asks how to leave, have very poor spatial boundaries-staring into tw eyes and violating personal space often during our meeting. Medical clearance from sending facility is limited. Will begin with this eval. Psychosocially, pt has lost both parents in 2017 and 2018 and per family has not grieved adequately. Youngest son has moved from the family home in summer 2020 and reportedly has a history of depression with SI. 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 Pt not eating or sleeping well, anxious and wandering the unit a sking to leave. Plan: Remeron 15 mg HS- target sx sleep, appetite Risperdal 1 mg HS-target sx to clarify thought process, decrease paranoia CMP, TSH, B12, Folate, Vit D, A1C, Lipids EKG MRI Brain-new onset psychosis in the absence of history. EEG MVI i tablet daily 12/28/21: Continue medical work up and current regime Pt appears improved today. Ongoing collateral contact-it appears history of symptoms is longer than initially known. ? R/O PTSD 12/30 remains disorganized, perseverating on non-sensical worries; -increase risperdal to 2mg qhs 12/31/21 Pt has signed a Section X Add Risperdal 1mg a.m. Begin Trileptal 300 mg bid 01/03/22 Decrease Mirtazapine to 7.5 mg HS Decrease Trileptal to 300 mg HS CBCD, BMP Vitamin D 25 mcg daily 01/04/22 Continue current regime 01/05/2022: Continue current regimen and plans. No changes were made today 01/06/2022: Continue current regimen and plans with no change 01/07/22: Continue current plan. Pt/ asks for no med changes. Discharge tentative 01/10/22. 01/08/22: Encourage milieu activity. Continue current regime. 01/09/22: Discharge 01/10/22. I spent minutes with the patient and/or on the patient floor today, greater than?50% of which was spent counseling/coordinating care. Patient educated on: medication risk/benefits and therapeutic strategies Informed Consent: understands and further education needed Reason for contiued inpatient stay Substantial Risk for: inability to function and rapid decompensation
[2022-01-09 21:03] VITALS: BP 108/59; PULSE 83; RESP 17; TEMP 36.9
[2022-01-09] MEDS: Docusate Sodium 100 MG CAPSULE PO (21:09)
[2022-01-09] MEDS: Mirtazapine 7.5 MG TABLET PO (21:09)
[2022-01-09] MEDS: risperiDONE 2 MG TABLET PO (21:10)
[2022-01-09] MEDS: OXcarbazepine 300 MG TABLET PO (21:10)
[2022-01-10 06:00] VITALS: BP 129/75; PULSE 84; RESP 18; TEMP 36.6; O2SAT 100
[2022-01-10] MEDS: Cholecalciferol (Vitamin D3) 25 MCG TABLET PO (08:41)
[2022-01-10] MEDS: Multivitamin TABLET 1 TAB PO (08:41)
--- NOTE | 2022-01-10 10:38 | PC.NURSE ---
Patient alert and oriented x4. Expresses readiness for discharge. All discharge instructions reviewed with patient and understanding was verbalized. Follow up appointments made with providers. Discharge information faxed to [facility]. Patient left unit walking with and RN.
--- NOTE | 2022-01-10 18:14 | P.DS_ITS ---
DS: Providers Provider Date of Service: 01/10/22 Date of admission: 12/26/21 15:56 Date of discharge: 01/10/22 Primary care physician: Unknown Physician Admitting clinician: Samara Barrera Attending physician on admission: Samara Barrera Consults: 12/26/21 15:34 Consult to Hospitalist Routine Consulting Provider: Hospitalist Reason For Exam: Admission in transfer from [facility] Attending physician on discharge: Samara Barrera Discharging clinician: Samara Barrera DS: Diagnosis Discharge Diagnosis (1) Major depression with psychotic features: Status: Acute DS: Medications Discharge Medications Home Medications: Previous Rx's Medication Instructions Recorded cholecalciferol (vitamin D3) 25 25 mcg PO DAILY #15 tab 01/09/22 mcg (1,000 unit) tablet docusate sodium 100 mg capsule 100 mg PO BEDTIME #15 cap 01/09/22 mirtazapine 7.5 mg tablet 7.5 mg PO BEDTIME #15 tab 01/09/22 multivitamin (Daily-Erika) 1 tab PO DAILY #15 tab 01/09/22 oxcarbazepine 300 mg tablet 300 mg PO BEDTIME #15 tab 01/09/22 quetiapine 25 mg tablet 25 mg PO Q4H PRN #15 tab 01/09/22 risperidone 2 mg tablet 2 mg PO BEDTIME #15 tab 01/09/22 Mental Status Exam Mental Status Exam Patient Appearance: Appropriate Patient Orientation: Person, Place, Time and Situation Level of Consciousness: Alert Patient Behavior: Talkative and Good Eye Contact Mood Description: Anxious Affect Description: Apprehensive Patient Cognition Impaired: No Ability to Follow Directions: Good Speech Pattern: Spontaneous Speech Memory Description: Intact Hallucinations: None Delusions: Paranoid Ideation Thought Process: Distracted and Rumination Thought Content: positive for [place] and positive for Circumstantial Depressive Symptoms: Increased Anxiety Abnormal Motor Activity Signs and Symptoms: Restlessness Judgement: Good Data Data Completed and Pending Completed studies during hospitalization [Text1]: 01/04/22 01/04/22 07:59 07:59 WBC 4.3 L RBC 3.97 L Hgb 11.9 L Hct 37.6 MCV 94.7 MCH 30.0 MCHC 31.6 RDW 11.4 Plt Count 199 MPV 10.5 Immature Gran % (Auto) 0.2 Neut % (Auto) 43.7 L Lymph % (Auto) 43.2 H Mcn[place] % (Auto) 9.6 Eos % (Auto) 2.8 Baso % (Auto) 0.5 Lymph # (Auto) 1.8 [place] # (Auto) 0.4 Eos # (Auto) 0.1 Baso # (Auto) 0.0 Abs Immat Gran (auto) 0.01 Absolute Neuts (auto) 1.9 L Absolute Nucleated RBC 0.000 Nucleated RBC % (auto) 0.0 Sodium 141 Potassium 4.2 Chloride 107 Carbon Dioxide 26 Anion Gap 12 BUN 16 Creatinine 0.70 Estim Creat Clear Calc 76.8 Estimated GFR > 60 Random Glucose 89 Calcium 8.7 D DS: Summary Hospital Course Hospital Course: Admission to adult psychiatry to address symptoms of major depression with psychotic features. Care plan prior to admission was reviewed. Education was provided regarding symptom management, medications and side effects. Nursing and social media designer worked with Joy on education, care planning and discharge planning. Pt's , Barak was involved with daily contacts to offer his input regarding Joy's mental status and improvement. He reported at one point that she presented as the woman I and offered feedback regarding her sx of anxiety, depression and paranoia. Both Joy and Barak were not wanting medication intervention as part of the treatment plan. Joy was evaluated for Reiki prior to admission and both are hoping a holistic plan will work better for her vs psychopharmacology. Mirtazapine 7.5 mg was initiated for mgt of depression, insomnia and poor appetite. Trileptal 300 mg was initiated for mgt of mood, Risperdal 2 mg was initiated for mgt of paranoia, and Seroquel 25 mg q4h prn was initiated for anxiety. Both believe they will not continue medications upon discharge. Medical work up was pursued during this admission to rule out organic etiologies of presenting symptoms. Pt refused MRI during this admission. Both believe that the majority of Joy's symptoms were caused by her being in hospital and being away from home and family. Time spent discussing smoking cessation with patient: 3 to 10 minutes Status at Discharge Functional status at discharge: independent ambulation Overall status at discharge: patient is progressing back to baseline Time Spent with Patient Time attestation: Total time spent providing and/or coordinating discharge services: Time spent: Greater than 30 minutes Discharge Plan Discharge Patient Disposition: Home, Self-Care Discharge Diagnosis: Recurrent major depression with psychotic features Referrals: Psychiatric Med Management: Dr. Juliann Romero [Other] - 01/17/22 9:00 am (This appointment is in-office) Therapy: Claritza Santana [Other] - 1 Week (A voice message was left for your therapist informing her of your discharge. Please contact her at the above number to obtain a follow-up therapy appointment.) Dalila Quiles [Nurse Practitioner] - 1 Week (Message left. Patient to follow up with provider.) Discharge Medications: New multivitamin [Daily-Erika] Tablet 1 tab PO DAILY Qty: 15 1RF quetiapine 25 mg Tablet 25 mg PO Q4H PRN (Reason: Anxiety) Qty: 15 1RF oxcarbazepine 300 mg Tablet 300 mg PO BEDTIME Qty: 15 1RF risperidone 2 mg Tablet 2 mg PO BEDTIME Qty: 15 1RF docusate sodium 100 mg Capsule 100 mg PO BEDTIME Qty: 15 1RF mirtazapine 7.5 mg Tablet 7.5 mg PO BEDTIME Qty: 15 1RF cholecalciferol (vitamin D3) 25 mcg (1,000 unit) Tablet 25 mcg PO DAILY Qty: 15 1RF Discharge Orders: Discharge Order (Routine); Ordered 01/10/22 Ordered By: Samara Barrera Diet: advance to usual diet Activity on Discharge: As tolerated Stand Alone Forms: Patient Portal Discharge page, Community Support Care Plan Goals: Mood stabilization Clarity of thought process Health Concerns: Recurrent major depression with psychotic features Plan of Treatment: Attend scheduled appointments Take medications as directed Return to your holistic routine with your previous providers Assessment: non-psychotic, non-suicidal Discharge Date/Time: 01/10/22 10:38
== END 2022-01-10 10:38 | disposition home or self-care (01) | DRG 751 ==
PROVIDERS: Admitting Provider Psychiatry & Neurology Psychiatry; Visit Provider Clinical Nurse Specialist Psychiatric/Mental Health, Adult
DX: F32.3 Major depressive disorder, single episode, severe with psychotic features (principal); Z79.899 Other long term (current) drug therapy
CPT/HCPCS: 36415; 80048; 80053; 80061; 82306; 82607; 82746; 82947; 83036; 84443; 85025; 93005; 95816